=== PATIENT | female | born 1955 | race Caucasian/White ===

== ENCOUNTER → 2016-08-24 | Outpatient (CLI) | payer BC ==
[~2016-08-24] MED LIST: ALBU1AER9 INH; APRE1TAB3 PO; ATV/1 PO; ATV5 PO; AUG0.05O4 TOP; BROM0.07 OPR; CALC-388 PO; CALC-393 PO; CALC1CHW PO; CALC3OIN TOP; CALCTAB5 PO; CITA20TA4 PO; CITA20TA9 PO; CLB/200 PO; CLR10 PO; CRANPOW PO; FOLI1TAB7 PO; KRIL1000 PO; KRIL1CAP24 PO; METH2.5T PO; MOME50SP5; MOME6000; OMEP20TA PO; OXYC1TAB3 PO; PRAV40TA2 PO; PRED1SUS OPR; RXC5 PO; SALI0.6510; TIMO0.2534 OP; VNTHFA/IN INH; [UNRECOGNIZED DRUG - CODE] OPB
--- NOTE | 2016-08-24 15:09 | MAMMOGRAPHY REPORT ---
BILATERAL DIGITAL SCREENING MAMMOGRAM TOMOSYNTHESIS WITH CAD: 08/24/2016 TECHNIQUE: Breast tomosynthesis in addition to standard 2D mammography was performed. Current study was also evaluated with a Computer Aided Detection (CAD) system. COMPARISON: Comparison is made to exams dated: 08/22/2015 mammogram, 08/19/2014 mammogram, 08/18/2013 mammogram, 08/06/2012 mammogram, 07/26/2011 mammogram, and 07/25/2010 mammogram - [facility]. BREAST COMPOSITION: There are scattered areas of fibroglandular density in both breasts. FINDINGS: No suspicious masses, calcifications, or areas of architectural distortion are noted in e ither breast. There has been no significant interval change compared to prior exams. There are stab le postsurgical changes in the right lower inner quadrant, left upper outer quadrant anteriorly, and left axilla. Bilateral benign-appearing calcifications, predominantly dystrophic calcifications, a re not significantly changed. IMPRESSION: ACR BI-RADS CATEGORY 2: BENIGN There is no mammographic evidence of malignancy. A 1 year screening mammogram is recommended. The p atient will receive written notification of the results. Approximately 10% of breast cancers are not detected with mammography. A negative mammographic repor t should not delay biopsy if a clinically suggestive mass is present. Jacy Rivas M.D. /:08/24/2016 14:07:28 Merchandise Associate: Jennifer DARLING)([place]), [facility] letter sent: Normal 1/2 BI-RADS Code: ACR BI-RADS Category 2: Benign
== END | disposition home or self-care (01) ==
LOC: C.MAMM 10:07
PROVIDERS: ATTEND Obstetrics & Gynecology
DX: Z12.31 Encounter for screening mammogram for malignant neoplasm of breast (principal)

== ENCOUNTER 2016-10-26 13:17 | Emergency (ER) | payer BC ==
[~2016-10-26] VITALS: Ht 165.1 cm; Wt 76.1 kg
[~2016-10-26 13:17] MED LIST changes: -APRE1TAB3 PO; -ATV/1 PO; -BROM0.07 OPR; -CALC-388 PO; -CALC-393 PO; -CITA20TA9 PO; -CLB/200 PO; -CRANPOW PO; -KRIL1CAP24 PO; -METH2.5T PO; -MOME6000; -PRED1SUS OPR; -VNTHFA/IN INH; -[UNRECOGNIZED DRUG - CODE] OPB
[2016-10-26 13:21] VITALS: TEMP 36.7; Ht 165.1 cm; Wt 76.1 kg
[2016-10-26] MEDS ORDERED: LORAZEPAM 1 MG TAB SL STA (13:46)
[2016-10-26] MEDS ORDERED: SODIUM CHLORIDE 0.9% 1000ML 500 ML IV STA (13:46)
--- NOTE | 2016-10-26 13:55 | EMERGENCY ROOM VISIT NOTE ---
History Report prepared by Cornelius: Hazel Card Under the Supervision of: Dr. Kendall Reyes M.D. First contact with patient: 13:41 Chief Complaint: CARDIAC ASSESSMENT Stated Complaint: HEART PALPATATION,NAUSEA,SWEATS,FATIGUE History of Present Illness The patient is a 61 year old female who presents to the Emergency Room with complaints of persistent anxiety that began prior to arrival. The patient states that she has a history of depression, but notes that it is well controlled under medication. She states that recently she has been feeling increasingly stressed and anxious. The patient notes that she hasn't had any full panic attack, but has noticed starting to hyperventilate some. The patient states that she put her grandchildren on the bus today and then around 1030 she felt nauseous and diaphoretic. She states that she noticed tachycardia , palpitations, and shortness of breath. The patient denies any personal history of heart disease, but notes that her father had his first RI at the age of 41. The patient denies her symptoms worsening with exertion. Source of History: patient Onset: prior to arrival Position: other (global) Quality: other (anxiety) Timing: other (persistent) Associated Symptoms: + SOB, + diaphoresis, + nausea Note: Associated Symptoms: palpitations, tachycardia Review of Systems See HPI for pertinent positives & negatives. A total of 10 systems reviewed and were otherwise negative. Past Medical & Surgical Medical Problems: (1) Allergic rhinitis (2) Breast cancer (3) Cervical disc disorder with radiculopathy (4) Cervical herniated disc (5) DJD (degenerative joint disease), cervical (6) Dyslipidemia (7) Fibromyalgia (8) GERD (gastroesophageal reflux disease) (9) h/o BCC (10) H/O bronchitis (11) h/o dysphagia (12) H/o palpitations (13) h/o peripheral vertigo (14) History of TMJ disorder (15) Hypertension (16) Left shoulder pain (17) Psoriatic arthritis (18) Sensorineural hearing loss (SNHL), bilateral Surgical Problems: (1) H/O colonoscopy (2) H/o EGD (3) S/p drainage of ovarian cyst (4) S/p drainage of salivary gland abscess (5) S/p left knee meniscus surgery Family History Diabetes mellitus FATHER FH: CAD (coronary artery disease) FATHER (RI in 40s) UNCLE ( of RI in 30s) UNCLE ( of RI in 40's) FH: glaucoma MOTHER Stroke PATERNAL GRANDMOTHER Social History Smoking Status: Never Smoker Alcohol Use: occasionally Drug Use: none Marital Status: Occupation Status: disabled Current/Historical Medications Scheduled Albuterol Hfa (Ventolin Hfa), 2-4 PUFFS INH Q6H Apremilast (Otezla), 3 MG PO BID Betamethasone Dip Aug 0.05% (Diprolene 0.05%), 1 APPLN TOP BID Calcium Carbonate (Calcium), 600 MG PO BID Celecoxib (CeleBREX), 200 MG PO DAILY Citalopram Hydrobromide (Citalopram Hydrobromide), 30 MG PO QAM Folic Acid (Folvite), 1 MG PO QAM Loratadine (Claritin), 10 MG PO QAM Methotrexate (Methotrexate), 5 MG PO FRIDAYS Omeprazole (Omeprazole), 20 MG PO QAM Pravastatin Sodium (Pravastatin Sodium), 40 MG PO HS Scheduled PRN Calcitriol (Topical) (Vectical), 1 APPLN TOP BID PRN for PRN Calcium Carbonate (Antacid) (Tums Smoothies), 4-6 TABS PO DAILY PRN for PRN Lorazepam (Lorazepam), 0.5 MG PO Q8H PRN for anxiety and/or sedation Lorazepam (Ativan), 1 MG PO Q6H PRN for Anxiety/Agitation Saline ([place] Nasal [place]), 2 SPRAYS NA DIRECTED PRN for DRYNESS/CONGESTION Miscellaneous Medications Mometasone Furoate (Nasal) (Mometasone Furoate) Timolol Maleate (Timolol Maleate Ophthalmi) Allergies Coded Allergies: Doxycycline (Verified Allergy, Unknown, HIVES, 10/26/16) Sulfamethoxazole w/Trimethoprim (Verified Allergy, Unknown, insomnia, 10/26) Clarithromycin (Verified Adverse Reaction, Intermediate, INSOMNIA TACHYCARDIA, 10/26/16) Codeine (Verified Adverse Reaction, Mild, Severe drowsiness , 10/26/16) Tetracyclines (Verified Adverse Reaction, Mild, NAUSEA, 10/26/16) Physical Exam Vital Signs Date Time Temp Pulse Resp B/P Pulse Ox O2 Delivery O2 Flow Rate FiO2 10/26/16 15:12 72 16 122/71 95 Room Air 10/26/16 14:34 78 18 118/72 93 Room Air 10/26/16 13:42 91 10/26/16 13:21 36.7 88 18 135/86 96 Room Air Physical Exam GENERAL: Patient is in no acute distress. HEENT: No acute trauma, normocephalic atraumatic, mucous membranes moist, no nasal congestion, no scleral icterus. NECK: No stridor, no adenopathy, no meningismus, trachea is midline. CHEST: Tender left anterior chest wall. LUNGS: Clear to auscultation bilaterally, no wheeze, no rhonchi, breath sounds equal. HEART: Subtle systolic murmur, regular rate and rhythm ABDOMEN: Soft, nontender, bowel sounds positive, no hernias, no peritonitis. EXTREMITIES: No cyanosis or edema, full range of motion of all the joints without pain or difficulty, no signs for acute trauma. NEUROLOGIC: Oriented x 3, no acute motor or sensory deficits, no focal weakness. SKIN: No rash, no jaundice, no diaphoresis. PSYCH: Cooperative, not suicidal, slightly anxious. Medical Decision & Procedures ER Provider Diagnostic Interpretation: X-ray results as stated below per interpretation by me and the radiologist: CHEST ONE VIEW PORTABLE CLINICAL HISTORY: Atypical chest pain. Respiratory distress. COMPARISON STUDY: 08/28/2015 FINDINGS: The heart is at the upper limits of normal in size. There is no focal pulmonary consolidation. There is no failure. There are no pleural effusions.[ IMPRESSION: No active disease in the chest. Electronically signed by: Nabeel Browning M.D. 10/26/2016 2:06 PM Dictated Date/Time: 10/26/2016 2:06 PM Laboratory Results 10/26/16 14:05 Red Blood Count 4.17, Mean Corpuscular Volume 98.6, Mean Corpuscular Hemoglobin 33.8, Mean Corpuscular Hemoglobin Concent 34.3, Mean Platelet Volume 9.6, Neutrophils (%) (Auto) 63.5, Lymphocytes (%) (Auto) 24.2, Monocytes (%) (Auto) 9.6, Eosinophils (%) (Auto) 2.1, Basophils (%) (Auto) 0.4, Neutrophils # (Auto) 3.05, Lymphocytes # (Auto) 1.16, Monocytes # (Auto) 0.46, Eosinophils # (Auto) 0.10, Basophils # (Auto) 0.02 10/26/16 14:05 Test 10/26/16 14:05 White Blood Count 4.80 K/uL (4.8-10.8) Red Blood Count 4.17 M/uL (4.2-5.4) Hemoglobin 14.1 g/dL (12.0-16.0) Hematocrit 41.1 % (37-47) Mean Corpuscular Volume 98.6 fL (80-100) Mean Corpuscular Hemoglobin 33.8 pg (25-34) Mean Corpuscular Hemoglobin Concent 34.3 g/dl (32-36) Platelet Count 167 K/uL (130-400) Mean Platelet Volume 9.6 fL (7.4-10.4) Neutrophils (%) (Auto) 63.5 % Lymphocytes (%) (Auto) 24.2 % Monocytes (%) (Auto) 9.6 % Eosinophils (%) (Auto) 2.1 % Basophils (%) (Auto) 0.4 % Neutrophils # (Auto) 3.05 K/uL (1.4-6.5) Lymphocytes # (Auto) 1.16 K/uL (1.2-3.4) Monocytes # (Auto) 0.46 K/uL (0.11-0.59) Eosinophils # (Auto) 0.10 K/uL (0-0.5) Basophils # (Auto) 0.02 K/uL (0-0.2) RDW Standard Deviation 45.2 fL (36.4-46.3) RDW Coefficient of Variation 12.7 % (11.5-14.5) Immature Granulocyte % (Auto) 0.2 % Immature Granulocyte # (Auto) 0.01 K/uL (0.00-0.02) Anion Gap 5.0 mmol/L (3-11) Est Creatinine Clear Calc Drug Dose 71.7 ml/min Estimated GFR () 87.6 Estimated GFR (Non- 75.6 BUN/Creatinine Ratio 23.1 (10-20) Calcium Level 8.9 mg/dl (8.5-10.1) Magnesium Level 2.3 mg/dl (1.8-2.4) Troponin I < 0.015 ng/ml (0-0.045) Laboratory results reviewed by me. Medications Administered Medications (Trade) Dose Ordered Sig/Moni Route Start Time Stop Time Status Last Admin Dose Admin Sodium Chloride (Nss 1000ml) 500 ml @ 999 mls/hr Q31M STAT IV 10/26/16 13:46 10/26/16 14:16 DC 10/26/16 14:33 999 MLS/HR Lorazepam (Ativan Tab) 1 mg NOW STAT SL 10/26/16 13:46 10/26/16 13:50 DC 10/26/16 14:33 1 MG ECG Indication: diaphoresis, nausea, palpitations, SOB/dyspnea, tachycardia Rate (beats per minute): 84 Rhythm: normal sinus Findings: no acute ischemic change, no ectopy ED Course 1341: The patient was evaluated in room A2. A complete history and physical exam was performed. 1346: Ordered Ativan Tab 1 mg SL, Sodium Chloride 500 ml @ 999 mls/hr IV. 1507: I reevaluated the patient and she is resting comfortably. I discussed the exam findings with her and I discussed the treatment plan. She verbalized complete understanding and agreement. She is ready to go home. Medical Decision The patient is a 61 year old female who presents to the ED with complaints of anxiety. Differential diagnoses considered include electrolyte imbalance, hypothyroidism, dehydration, anemia, cardiac ischemia, dysrhythmia, anxiety. There is no leukocytosis or concerning anemia. No significant electrolyte abnormality or kidney failure. The patient appears to be in a euthyroid state. EKG shows a normal sinus rhythm, no acute ischemia. Cardiac enzyme testing times one is not consistent with acute cardiac injury. Chest x-ray does not show mediastinal widening, pneumonia or pneumothorax. The patient received IV saline. She was given Ativan sublingual. She feels markedly improved. I think the patient's issue is primarily anxiety. I don't find evidence to suggest acute cardiac ischemia or to suggest dysrhythmia. The patient is being discharged home with outpatient follow-up. A small prescription of Ativan will be provided. Of note, the left-sided chest pain is reproducible and very likely musculoskeletal. [place] Drug Monitoring Program Search Results: patient reviewed within database, no issues identified Impression Primary Impression: Palpitations Additional Impression: Left sided chest pain Scribe Attestation The scribe's documentation has been prepared under my direction and personally reviewed by me in its entirety. I confirm that the note above accurately reflects all work, treatment, procedures, and medical decision making performed by me. Departure Information Dispostion Home / Self-Care Prescriptions Lorazepam (ATIVAN) 1 Mg Tab 1 MG PO Q6H Y for Anxiety/Agitation, #10 TAB Prov: Kendall Reyes M.D. 10/26/16 Referrals Ghassan Ferrara M.D. (PCP) Forms IMPORTANT VISIT INFORMATION Patient Instructions [facility] Additional Instructions ativan 1 tab as needed for severe anxiety see aida georges this week for a recheck return if worsening or have worsening symptoms lab testing today was all ok Problem Qualifiers
--- NOTE | 2016-10-26 14:08 | DIAGNOSTIC IMAGING REPORT ---
CHEST ONE VIEW PORTABLE CLINICAL HISTORY: Atypical chest pain. Respiratory distress. COMPARISON STUDY: 08/28/2015 FINDINGS: The heart is at the upper limits of normal in size. There is no focal pulmonary consolidation. There is no failure. There are no pleural effusions.[ IMPRESSION: No active disease in the chest. Electronically signed by: Nabeel Browning M.D. 10/26/2016 2:06 PM Dictated Date/Time: 10/26/2016 2:06 PM
[2016-10-26 14:23] LABS: BASO % 0.4 %; BASO ABS # 0.02 K/uL (0-0.2); COMPLETE YES; EOS % 2.1 %; HEMATOCRIT 41.1 % (37-47); IG% 0.2 %; LYMPH % 24.2 %; LYMPH ABS # 1.16 K/uL (1.2-3.4); MEAN CELL VOLUME 98.6 fL (80-100); MEAN CORPUSCULAR HEMOGLOBIN 33.8 pg (25-34); MEAN CORPUSCULAR HGB CONC 34.3 g/dl (32-36); MEAN PLATELET VOLUME 9.6 fL (7.4-10.4); MONO % 9.6 %; NEUT % 63.5 %; PLATELET COUNT 167 K/uL (130-400); RED BLOOD COUNT 4.17 M/uL (4.2-5.4)
[2016-10-26] MEDS ORDERED: MOME6000 (14:26)
[2016-10-26] MEDS ORDERED: CALC-393 PO (14:26)
[2016-10-26] MEDS ORDERED: APRE1TAB3 PO (14:26)
[2016-10-26] MEDS ORDERED: [UNRECOGNIZED DRUG - CODE] OPB (14:26)
[2016-10-26] MEDS ORDERED: METH2.5T PO (14:26)
[2016-10-26] MEDS ORDERED: CLB/200 PO (14:26)
[2016-10-26] MEDS ORDERED: VNTHFA/IN INH (14:26)
[2016-10-26 14:40] LABS: BLOOD UREA NITROGEN 19 mg/dl (7-18); BUN/CREATININE RATIO 23.1 (10-20); CALCIUM 8.9 mg/dl (8.5-10.1); CARBON DIOXIDE 30 mmol/L (21-32); CHLORIDE 113 mmol/L (98-107); CREATININE 0.83 mg/dl (0.60-1.20); GLUCOSE 91 mg/dl (70-99); MAGNESIUM 2.3 mg/dl (1.8-2.4); POTASSIUM 4.1 mmol/L (3.5-5.1); SODIUM 148 mmol/L (136-145)
[2016-10-26 15:12] VITALS: BP 122/71; PULSE 72; O2SAT 95
[2016-10-26] MEDS ORDERED: ATV/1 PO (15:14)
[2017-01-22] MEDS ORDERED: CALC-388 PO (11:32)
[2017-01-22] MEDS ORDERED: APRE1TAB3 PO (11:32)
[2017-01-22] MEDS ORDERED: CRANPOW PO (11:32)
[2017-01-22] MEDS ORDERED: KRIL1CAP24 PO (11:32)
[2017-01-22] MEDS ORDERED: CITA20TA9 PO (11:32)
[2017-02-25] MEDS ORDERED: BROM0.07 OPR (13:17)
[2017-02-25] MEDS ORDERED: PRED1SUS OPR (13:17)
== END 2016-10-26 15:23 | disposition home or self-care (01) ==
LOC: C.EDB 13:19 → C.EDA 15:23
DX: R00.2 Palpitations (principal); R07.9 Chest pain, unspecified; I10 Essential (primary) hypertension; K21.9 Gastro-esophageal reflux disease without esophagitis; E78.5 Hyperlipidemia, unspecified; Z85.3 Personal history of malignant neoplasm of breast; Z98.890 Other specified postprocedural states; Z79.899 Other long term (current) drug therapy; Z88.2 Allergy status to sulfonamides; Z88.5 Allergy status to narcotic agent; Z88.8 Allergy status to other drugs, medicaments and biological substances; Z83.3 Family history of diabetes mellitus; Z82.49 Family history of ischemic heart disease and other diseases of the circulatory system; Z82.3 Family history of stroke

== ENCOUNTER → 2017-02-19 | Day surgery (SDC) | payer BC ==
[2017-01-22 11:33] VITALS: Ht 165.1 cm; Wt 75.5 kg
[~2017-02-19] VITALS: Ht 165.1 cm; Wt 75.5 kg
[~2017-02-19] MED LIST changes: +500ML BSS 0.3ML EPI 1:1000PF IRRIG ONE; +ACETAMINOPHEN 325 MG TAB PO PRN; -ALBU1AER9 INH; +AMVISC PLUS 0.8ML SYRINGE INT OCU ONE; +APRE1TAB3 PO; +ATROPINE SULFATE 0.1 MG/ML 5ML SYR IV PRN; -ATV5 PO; +BROM0.07 OPR; +BSS FLUSH ONE; +CALC-388 PO; -CALCTAB5 PO; -CITA20TA4 PO; +CITA20TA9 PO; +CLB/200 PO; +CRANPOW PO; +EpHEDrine SULFATE INJ 50 MG/ML AMP IV PRN; +EpINEphrine INJ 1MG/ML AMP 1 MG/ML AMP ONE; -KRIL1000 PO; +KRIL1CAP24 PO; +LACTATED RINGER'S 1000ML 500 ML IV SCH; +LIDOCAINE 3.5% OPH GEL PER APPLICATION CHARGE ONE; +LIDOCAINE HCL 1% MPF 2 ML VIAL ONE; +METH2.5T PO; +MIDAZOLAM HCL 1 MG/ML 2ML VIAL ONE; -MOME50SP5; +OCUCOAT 1 ML SOLN IO ONE; -OXYC1TAB3 PO; +POVIDONE-IODINE OP SOLN 30 ML BTL ONE; +PRED1SUS OPR; +PROPARACAINE 0.5% OP SOLN PER DROP CHARGE OPR SCH; -RXC5 PO; -TIMO0.2534 OP; +TOBRAMYCIN/DEXAMETHASONE OPH OINT PER APPLN CHARGE ONE; +VNTHFA/IN INH; +[UNRECOGNIZED DRUG - CODE] OPB
[2017-02-19] MEDS: PHENYLEPHRINE HCL 2.5% OP SOLN PER DROP CHARGE OPR SCH ×2 (06:33→06:38)
[2017-02-19] MEDS: TROPICAMIDE 1% OP SOLN PER DROP CHARGE OPR SCH ×2 (06:34→06:39)
[2017-02-19] MEDS: CYCLOPENTOLATE HCL 1% OP SOLN PER DROP CHARGE OPR SCH ×2 (06:35→06:40)
[2017-02-19] MEDS: KETOROLAC 0.5% OP SOLN PER DROP CHARGE OPR SCH ×2 (06:36→06:40)
[2017-02-19] MEDS: GATIFLOXACIN OP SOLN PER DROP CHARGE OPR SCH ×2 (06:37→06:47)
--- NOTE | 2017-02-19 07:00 | History & Physical Bridge - SC ---
H&P Re-Evaluation Bridge Note: I have examined the patient, reviewed the History & Physical and in the interval since the performance of the History & Physical I have noted the following changes of clinical significance: No changes noted
--- NOTE | 2017-02-19 07:19 | Discharge Instructions-SurgCtr ---
Discharge Instructions Date of Service Feb 19, 2017. Visit Reason for Visit: Right Cataract Discharge Discharge Diagnosis / Problem: cataract Discharge Goals Goal(s): Improve function Activity Recommendations Activity Limitations: per Instructions/Follow-up section Anesthesia . Post Anesthesia Instructions: If you have had General Anesthesia or IV Sedation: * Do not drive today. * Resume driving when surgeon permits. * Do not make important decisions or sign legal documents today. * Call surgeon for: 1. Temperature elevations greater than 101 degrees F. 2. Uncontrollable pain. 3. Excessive bleeding. 4. Persistent nausea and vomiting. 5. Medication intolerance (nausea, vomiting or rash). * For nausea and vomiting use only clear liquids such as: tea, soda, bouillon until nausea subsides, then gradually increase diet as tolerated. * If you have any concerns or questions, call your surgeon's office. If physician is unavailable and it is an emergency, call 911 or go to the nearest emergency room. . Instructions / Follow-Up Instructions / Follow-Up ACTIVITY RECOMMENDATIONS: * No strenuous lifting, jogging or running for 4 days * No swimming or yard work for 1 week. * Limited bending is permitted, such as putting on shoes. RETURN TO SCHOOL/WORK: No work until seen by physician in office. MEDICATIONS: Resume previous medications unless instructed otherwise by your surgeon. This includes eye drops for glaucoma. Zymaxid/Gatifloxacin (flowers cap) - one drop every 2 hours until bedtime Nevanac/Ilevro/Prolensa/Ketorolac (buchanan cap) - one drop every 4 hours until bedtime Prednisolone/Durezol (white/pink cap, SHAKE WELL) - one drop every 2 hours until bedtime Starting tomorrow - all 3 drops every 4 hours until seen in the office Optive drops - as needed for discomfort SPECIAL CARE INSTRUCTIONS: * Wear eyeshield when sleeping, for four nights. * You may wear your own glasses or sunglasses while awake. * You may read or watch TV * You may shower and wash your face, but be gentle around the eye and pat dry. * Blurry vision and mild irritation are normal. * Call office if pain is more severe or vision becomes dark at . FOLLOW UP VISIT: Follow-up with Dr Riggins tomorrow. Diet Recommendations Home Diet: resume previous diet Procedures Procedures Performed: Right Cataract Phacoemulsification With Intraocular Lens Implant Pending Studies Studies pending at discharge: no Medical Emergencies . Who to Call and When: Medical Emergencies: If at any time you feel your situation is an emergency, please call 911 immediately. . Non-Emergent Contact Non-Emergency issues call your: Lumber Bearer . . "Provider Documentation" section prepared by Holden Riggins. .
--- NOTE | 2017-02-19 07:20 | [facility] Operative Report ---
Operative Report Date of Service Feb 19, 2017. Operative Report 1. PREOPERATIVE DIAGNOSIS: Cataract of the right eye. 2. POSTOPERATIVE DIAGNOSIS: Same. 3. PROCEDURE: Phacoemulsification with intraocular lens implantation of the right eye. SURGEON: Dr. Holden Riggins. ANESTHESIA: Topical Lidocaine gel, 1% Non- Preserved intracameral Lidocaine, and monitored intravenous sedation. INDICATIONS FOR THE PROCEDURE: The patient is a 61 - year-old female with a history of cataract of the right eye causing significant visual impairment. The details of the proposed procedure were explained to the patient who asked appropriate questions and following discussion of all risks, benefits and alternatives agreed to have the procedure done. 4. OPERATION AND FINDINGS: DESCRIPTION OF PROCEDURE: After informed consent was obtained, the patient was brought to the Operating Room at the [facility]. The patient was placed in a supine position and then the right eye was prepped and draped in the usual sterile fashion for intraocular surgery. A drop of topical Lidocaine gel was placed in the operative eye. A wire lid speculum was then placed in the fornices. A corneal paracentesis was then created temporally. The Non-Preserved Lidocaine was then instilled into the anterior chamber. The anterior chamber was then pressurized with viscoelastic. A 2.0 mm clear corneal incision was then created temporally. A cystotome was inserted into the anterior chamber and used to create a tear in the anterior lens capsule. This capsular tear was then used to create a small flap and the flap was dragged in a counterclockwise direction in order to create a continuous curvilinear capsulorrhexis. Hydrodissection was accomplished with balanced salt solution. Phacoemulsification of the lens nucleus was then performed in a standard [id number] technique. The phaco time was 19 seconds with an average power of 11 %. The remaining cortical material was removed using irrigation aspiration. The capsular bag was then filled with viscoelastic. A [employer]ch [employer] Lomb MI60L +24.5 diopters lens was then loaded into the injector and injected into the capsular bag. The remaining viscoelastic was removed with the irrigation aspiration handpiece. The wound was hydrated and then checked and found to be watertight. The intraocular pressure was checked and found to be adequate. The wire lid speculum was removed and the patient's face was cleaned and dried. TobraDex ointment was placed in the inferior fornix. The patient was discharged to the Recovery Room having tolerated the procedure well. There were no complications. The patient will be seen tomorrow in the office for follow-up. I attest to the content of the Intraoperative Record and any orders documented therein. Any exceptions are noted below.
[2017-02-19 07:26] VITALS: TEMP 36
[2017-02-19 07:41] VITALS: BP 128/81; PULSE 63; O2SAT 97
--- NOTE | 2017-02-19 07:47 | Anesthesia Progress Nt - [facility] ---
Anesthesia Post Op Note Date & Time Feb 19, 2017 at 07:47 Vital Signs Pain Intensity: 0 Vital Signs Past 12 Hours Date Time Temp Pulse Resp B/P (MAP) Pulse Ox O2 Delivery O2 Flow Rate FiO2 02/19/17 07:41 63 128/81 (97) 97 Room Air 02/19/17 07:26 36.0 64 14 138/83 (101) 98 Room Air 02/19/17 06:23 36.3 62 16 132/66 (88) 96 Notes Mental Status: alert / awake / arousable, participated in evaluation Pt Amnestic to Procedure: Yes Nausea / Vomiting: adequately controlled Pain: adequately controlled Airway Patency, RR, SpO2: stable & adequate BP & HR: stable & adequate Hydration State: stable & adequate Anesthetic Complications: no major complications apparent
== END | disposition home or self-care (01) ==
LOC: X.SURG 06:15
PROVIDERS: ATTEND Ophthalmology
DX: H26.9 Unspecified cataract (principal); E78.5 Hyperlipidemia, unspecified; F43.21 Adjustment disorder with depressed mood; L40.50 Arthropathic psoriasis, unspecified; M79.7 Fibromyalgia; Z87.891 Personal history of nicotine dependence; Z85.3 Personal history of malignant neoplasm of breast; Z79.899 Other long term (current) drug therapy

== ENCOUNTER → 2017-03-12 | Day surgery (SDC) | payer BC ==
[2017-02-25 13:22] VITALS: Ht 165.1 cm; Wt 75.5 kg
[~2017-03-12] VITALS: Ht 165.1 cm; Wt 75.5 kg
[~2017-03-12] MED LIST changes: +DEXAMETHASONE SOD INJ 4 MG/ML VIAL IV PRN; +FENTANYL CITRATE INJ 50 MCG/1 ML 2 ML VIAL IV PRN; +FENTANYL CITRATE INJ 50 MCG/1 ML 2 ML VIAL ONE; +KETOROLAC TROMETHAMINE 30 MG/ML VIAL IV. PRN; +LABETALOL HCL IV 5 MG/ML 20ML IV PRN; +METOCLOPRAMIDE HCL INJ 5 MG/ML 2 ML VIAL IV PRN; +MoRPHine SULFATE 10 MG/ML CARP/VIAL IV PRN; +ONDANSETRON INJ 2 MG/ML 2 ML VIAL IV PRN; +PHENYLEPHRINE 100MCG/ML 5ML SYR IV PRN; +PROPARACAINE 0.5% OP SOLN PER DROP CHARGE OPL SCH; -PROPARACAINE 0.5% OP SOLN PER DROP CHARGE OPR SCH
[2017-03-12] MEDS: PHENYLEPHRINE HCL 2.5% OP SOLN PER DROP CHARGE OPL SCH ×2 (07:11→07:16)
[2017-03-12] MEDS: TROPICAMIDE 1% OP SOLN PER DROP CHARGE OPL SCH ×2 (07:12→07:17)
[2017-03-12] MEDS: CYCLOPENTOLATE HCL 1% OP SOLN PER DROP CHARGE OPL SCH ×2 (07:13→07:18)
[2017-03-12] MEDS: KETOROLAC 0.5% OP SOLN PER DROP CHARGE OPL SCH ×2 (07:14→07:19)
[2017-03-12] MEDS: GATIFLOXACIN OP SOLN PER DROP CHARGE OPL SCH ×2 (07:15→07:26)
--- NOTE | 2017-03-12 08:18 | Discharge Instructions-SurgCtr ---
Discharge Instructions Date of Service Mar 12, 2017. Visit Reason for Visit: Cataract Left Eye Discharge Discharge Diagnosis / Problem: cataract Discharge Goals Goal(s): Improve function Activity Recommendations Activity Limitations: per Instructions/Follow-up section Anesthesia . Post Anesthesia Instructions: If you have had General Anesthesia or IV Sedation: * Do not drive today. * Resume driving when surgeon permits. * Do not make important decisions or sign legal documents today. * Call surgeon for: 1. Temperature elevations greater than 101 degrees F. 2. Uncontrollable pain. 3. Excessive bleeding. 4. Persistent nausea and vomiting. 5. Medication intolerance (nausea, vomiting or rash). * For nausea and vomiting use only clear liquids such as: tea, soda, bouillon until nausea subsides, then gradually increase diet as tolerated. * If you have any concerns or questions, call your surgeon's office. If physician is unavailable and it is an emergency, call 911 or go to the nearest emergency room. . Instructions / Follow-Up Instructions / Follow-Up ACTIVITY RECOMMENDATIONS: * No strenuous lifting, jogging or running for 4 days * No swimming or yard work for 1 week. * Limited bending is permitted, such as putting on shoes. RETURN TO SCHOOL/WORK: No work until seen by physician in office. MEDICATIONS: Resume previous medications unless instructed otherwise by your surgeon. This includes eye drops for glaucoma. Zymaxid/Gatifloxacin (flowers cap) - one drop every 2 hours until bedtime Nevanac/Ilevro/Prolensa/Ketorolac (buchanan cap) - one drop every 4 hours until bedtime Prednisolone/Durezol (white/pink cap, SHAKE WELL) - one drop every 2 hours until bedtime Starting tomorrow - all 3 drops every 4 hours until seen in the office Optive drops - as needed for discomfort SPECIAL CARE INSTRUCTIONS: * Wear eyeshield when sleeping, for four nights. * You may wear your own glasses or sunglasses while awake. * You may read or watch TV * You may shower and wash your face, but be gentle around the eye and pat dry. * Blurry vision and mild irritation are normal. * Call office if pain is more severe or vision becomes dark at . FOLLOW UP VISIT: Follow-up with Dr Riggins tomorrow. Diet Recommendations Home Diet: resume previous diet Procedures Procedures Performed: Left Cataract Phacoemulsification With Intraocular Lens Implant Pending Studies Studies pending at discharge: no Medical Emergencies . Who to Call and When: Medical Emergencies: If at any time you feel your situation is an emergency, please call 911 immediately. . Non-Emergent Contact Non-Emergency issues call your: Transport Tank Technician . . "Provider Documentation" section prepared by Holden Riggins. .
--- NOTE | 2017-03-12 08:19 | [facility] Operative Report ---
Operative Report Date of Service Mar 12, 2017. Operative Report 1. PREOPERATIVE DIAGNOSIS: Cataract of the left eye. 2. POSTOPERATIVE DIAGNOSIS: Same. 3. PROCEDURE: Phacoemulsification with intraocular lens implantation of the left eye. SURGEON: Dr. Holden Riggins. ANESTHESIA: Topical Lidocaine gel, 1% Non- Preserved intracameral Lidocaine, and monitored intravenous sedation. INDICATIONS FOR THE PROCEDURE: The patient is a 61 - year-old female with a history of cataract of the left eye causing significant visual impairment. The details of the proposed procedure were explained to the patient who asked appropriate questions and following discussion of all risks, benefits and alternatives agreed to have the procedure done. 4. OPERATION AND FINDINGS: DESCRIPTION OF PROCEDURE: After informed consent was obtained, the patient was brought to the Operating Room at the [facility]. The patient was placed in a supine position and then the left eye was prepped and draped in the usual sterile fashion for intraocular surgery. A drop of topical Lidocaine gel was placed in the operative eye. A wire lid speculum was then placed in the fornices. A corneal paracentesis was then created temporally. The Non-Preserved Lidocaine was then instilled into the anterior chamber. The anterior chamber was then pressurized with viscoelastic. A 2.0 mm clear corneal incision was then created temporally. A cystotome was inserted into the anterior chamber and used to create a tear in the anterior lens capsule. This capsular tear was then used to create a small flap and the flap was dragged in a counterclockwise direction in order to create a continuous curvilinear capsulorrhexis. Hydrodissection was accomplished with balanced salt solution. Phacoemulsification of the lens nucleus was then performed in a standard [id number] technique. The phaco time was 23 seconds with an average power of 8 %. The remaining cortical material was removed using irrigation aspiration. The capsular bag was then filled with viscoelastic. A [employer] MI60L +24.0 diopters lens was then loaded into the injector and injected into the capsular bag. The remaining viscoelastic was removed with the irrigation aspiration handpiece. The wound was hydrated and then checked and found to be watertight. The intraocular pressure was checked and found to be adequate. The wire lid speculum was removed and the patient's face was cleaned and dried. TobraDex ointment was placed in the inferior fornix. The patient was discharged to the Recovery Room having tolerated the procedure well. There were no complications. The patient will be seen tomorrow in the office for follow-up. I attest to the content of the Intraoperative Record and any orders documented therein. Any exceptions are noted below.
--- NOTE | 2017-03-12 08:39 | Anesthesia Progress Nt - [facility] ---
Anesthesia Post Op Note Date & Time Mar 12, 2017 at 08:39 Vital Signs Pain Intensity: 0 Vital Signs Past 12 Hours Date Time Temp Pulse Resp B/P (MAP) Pulse Ox O2 Delivery O2 Flow Rate FiO2 03/12/17 08:20 36.3 68 18 120/76 (91) 96 Room Air 03/12/17 07:06 36.9 65 22 112/73 (86) 94 Room Air Notes Mental Status: alert / awake / arousable, participated in evaluation Pt Amnestic to Procedure: Yes Nausea / Vomiting: adequately controlled Pain: adequately controlled Airway Patency, RR, SpO2: stable & adequate BP & HR: stable & adequate Hydration State: stable & adequate Anesthetic Complications: no major complications apparent
[2017-03-12 08:49] VITALS: BP 119/77; PULSE 59; O2SAT 95
== END | disposition home or self-care (01) ==
LOC: X.SURG 06:54
PROVIDERS: ATTEND Ophthalmology
DX: H26.9 Unspecified cataract (principal); K21.9 Gastro-esophageal reflux disease without esophagitis; M79.7 Fibromyalgia; L40.9 Psoriasis, unspecified; E78.5 Hyperlipidemia, unspecified; Z85.3 Personal history of malignant neoplasm of breast

== ENCOUNTER 2017-06-28 19:32 | Emergency (ER) | payer BC ==
[~2017-06-28] VITALS: Ht 165.1 cm; Wt 74.7 kg
[~2017-06-28 19:32] MED LIST changes: -500ML BSS 0.3ML EPI 1:1000PF IRRIG ONE; -ACETAMINOPHEN 325 MG TAB PO PRN; -AMVISC PLUS 0.8ML SYRINGE INT OCU ONE; -ATROPINE SULFATE 0.1 MG/ML 5ML SYR IV PRN; -BSS FLUSH ONE; -DEXAMETHASONE SOD INJ 4 MG/ML VIAL IV PRN; -EpHEDrine SULFATE INJ 50 MG/ML AMP IV PRN; -EpINEphrine INJ 1MG/ML AMP 1 MG/ML AMP ONE; -FENTANYL CITRATE INJ 50 MCG/1 ML 2 ML VIAL IV PRN; -FENTANYL CITRATE INJ 50 MCG/1 ML 2 ML VIAL ONE; -FOLI1TAB7 PO; +FOLI1TAB8 PO; -KETOROLAC TROMETHAMINE 30 MG/ML VIAL IV. PRN; -LABETALOL HCL IV 5 MG/ML 20ML IV PRN; -LACTATED RINGER'S 1000ML 500 ML IV SCH; -LIDOCAINE 3.5% OPH GEL PER APPLICATION CHARGE ONE; -LIDOCAINE HCL 1% MPF 2 ML VIAL ONE; -METOCLOPRAMIDE HCL INJ 5 MG/ML 2 ML VIAL IV PRN; -MIDAZOLAM HCL 1 MG/ML 2ML VIAL ONE; -MoRPHine SULFATE 10 MG/ML CARP/VIAL IV PRN; -OCUCOAT 1 ML SOLN IO ONE; -ONDANSETRON INJ 2 MG/ML 2 ML VIAL IV PRN; -PHENYLEPHRINE 100MCG/ML 5ML SYR IV PRN; -POVIDONE-IODINE OP SOLN 30 ML BTL ONE; -PROPARACAINE 0.5% OP SOLN PER DROP CHARGE OPL SCH; -TOBRAMYCIN/DEXAMETHASONE OPH OINT PER APPLN CHARGE ONE
[2017-06-28 19:39] VITALS: TEMP 36.7; Ht 165.1 cm; Wt 74.7 kg
[2017-06-28] MEDS ORDERED: ONDANSETRON INJ 2 MG/ML 2 ML VIAL IV STA (19:54)
[2017-06-28] MEDS ORDERED: HYDROmorphone INJ 0.5 MG/0.5 ML SYR IV STA ×2 (19:54→20:46)
--- NOTE | 2017-06-28 20:02 | EMERGENCY ROOM VISIT NOTE ---
History Report prepared by Cornelius: Aaron Mitchell Under the Supervision of: Dr. Crow Cardona M.D. First contact with patient: 19:44 Chief Complaint: HEADACHE Stated Complaint: DOSHI, NECK PAIN, SHOULDER PAIN R, DIZZY, NAUSEA History of Present Illness The patient is a 62 year old female who presents to the Emergency Room with complaints of an intermittent headache beginning two weeks ago. The patient states that her headache is located all over her head. She notes that she is also experiencing neck pain, ear pain, and right shoulder pain. She reports that her left shoulder was hurting earlier. She also complains of dizziness when she stands up and nausea. She denies any numbness, chest pain, vision problems, difficulty speaking, fever, cough, runny nose, and trauma. The patient states that she does not usually get headaches. She notes that she took Excedrin with no relief of her symptoms. She reports that she is not on any blood thinners. Source of History: patient, family Onset: two weeks ago Position: head Timing: intermittent Associated Symptoms: + neck pain, + nausea, No fevers, No cough, No chest pain, No numbness Note: She also complains of ear pain, right shoulder pain, and dizziness. She denies any vision problems, difficulty speaking, runny nose, and trauma. Review of Systems See HPI for pertinent positives & negatives. A total of 10 systems reviewed and were otherwise negative. Past Medical & Surgical Medical Problems: (1) Allergic rhinitis (2) Breast cancer (3) Cervical disc disorder with radiculopathy (4) Cervical herniated disc (5) DJD (degenerative joint disease), cervical (6) Dyslipidemia (7) Fibromyalgia (8) GERD (gastroesophageal reflux disease) (9) h/o BCC (10) H/O bronchitis (11) h/o dysphagia (12) H/o palpitations (13) h/o peripheral vertigo (14) History of TMJ disorder (15) Hypertension (16) Left shoulder pain (17) Psoriatic arthritis (18) Sensorineural hearing loss (SNHL), bilateral Surgical Problems: (1) H/O colonoscopy (2) H/o EGD (3) S/p drainage of ovarian cyst (4) S/p drainage of salivary gland abscess (5) S/p left knee meniscus surgery Old medical records were reviewed. Nurse's notes were reviewed and I agree with. Family History Diabetes mellitus FATHER FH: CAD (coronary artery disease) FATHER ([place] in 40s) UNCLE ( of [place] in 30s) UNCLE ( of [place] in 40's) FH: glaucoma MOTHER Stroke PATERNAL GRANDMOTHER Social History Smoking Status: Never Smoker Alcohol Use: occasionally Drug Use: none Marital Status: Occupation Status: disabled Current/Historical Medications Scheduled Apremilast (Otezla), 60 MG PO DAILY Azelastine HCl (Azelastine Hydrochloride), 1 SPRAY YAW DAILY Calcium Carbonate-Vitamin D (Calcium 500 + D), 1 TAB PO DAILY Celecoxib (CeleBREX), 200 MG PO DAILY Citalopram (Citalopram Hydrobromide), 30 MG PO DAILY Cranberry-Vitamin C-Vitamin E (Cranberry Plus Vitamin C), 4 CAP PO DAILY Folic Acid (Folvite), 1 MG PO DAILY Krill Oil (Krill Oil), 500 MG PO DAILY Methotrexate (Methotrexate), 10 MG PO WK Omeprazole (Prilosec), 20 MG PO DAILY Pravastatin Sodium (Pravachol), 40 MG PO DAILY Timolol Maleate (Timolol 0.5% Oph Soln 15 Ml), 1 DROP OPB QAM Scheduled PRN Saline ([place] Nasal Mist Allergy &), 1 SPRAY YAW DAILY PRN for ALLERGIES Allergies Coded Allergies: Doxycycline (Verified Allergy, Unknown, HIVES, 06/28/17) Sulfamethoxazole w/Trimethoprim (Verified Allergy, Unknown, insomnia, ) Clarithromycin (Verified Adverse Reaction, Intermediate, INSOMNIA TACHYCARDIA, 06/28/17) Codeine (Verified Adverse Reaction, Mild, Severe drowsiness , 06/28/17) Tetracyclines (Verified Adverse Reaction, Mild, NAUSEA, 06/28/17) Physical Exam Vital Signs Date Time Temp Pulse Resp B/P (MAP) Pulse Ox O2 Delivery O2 Flow Rate FiO2 06/28/17 22:26 67 16 131/65 97 06/28/17 21:30 62 130/63 93 Room Air 06/28/17 20:57 60 19 119/69 96 Room Air 06/28/17 20:12 67 14 112/75 98 Room Air 06/28/17 19:55 70 06/28/17 19:51 66 18 137/71 96 Room Air 06/28/17 19:39 36.7 74 18 126/67 95 Room Air Physical Exam General: Non-ill, non-toxic appearing middle age female in no acute distress. HEENT: Normal cephalic atraumatic. Pupils are equal round and reactive to light. Extraocular movements are intact. Oropharynx is pink with moist mucous membranes. No swelling of the mouth lips or tongue. Tympanic membranes normal bilaterally. no tenderness over mastoids. Neck: Supple with a midline trachea. No meningeal signs or stiffness, no JVD or bruits. No Stridor. Chest: Clear to auscultation bilaterally. No wheezes or rhonchi. No increased work of breathing. Heart: regular rate and rhythm. Abdomen: Soft nontender, nondistended without rebound guarding or rigidity. Extremities: No cyanosis clubbing or edema. No calf tenderness or assymetry Spine/Back. Non tender to palpation. No CVA tenderness Skin: Good turgor without rashes. Neurologic exam: Cranial nerves two through 12 are intact. Motor and sensation are intact and symmetrical throughout. Medical Decision & Procedures ER Provider Diagnostic Interpretation: Radiology results as stated below per my review and radiologist interpretation: CT HEAD WITHOUT CONTRAST (CT) FINDINGS: No intra or extra-axial mass lesions are visualized. There is no CT evidence of acute cortical infarction. There is no evidence of midline shift. There is no acute hemorrhage. No calvarial fractures are visualized. There are few prominent perivascular spaces There is no evidence of pathologic ventricular dilatation. There is no evidence of acute sinusitis IMPRESSION: No acute intracranial findings Electronically signed by: Nabeel Browning M.D. 06/28/2017 8:36 PM Laboratory Results 06/28/17 20:00 Red Blood Count 4.25, Mean Corpuscular Volume 98.1, Mean Corpuscular Hemoglobin 34.4, Mean Corpuscular Hemoglobin Concent 35.0, Mean Platelet Volume 9.7, Neutrophils (%) (Auto) 54.4, Lymphocytes (%) (Auto) 33.7, Monocytes (%) (Auto) 8.8, Eosinophils (%) (Auto) 2.3, Basophils (%) (Auto) 0.6, Neutrophils # (Auto) 2.58, Lymphocytes # (Auto) 1.60, Monocytes # (Auto) 0.42, Eosinophils # (Auto) 0.11, Basophils # (Auto) 0.03 06/28/17 20:00 Test 06/28/17 20:00 06/28/17 20:09 White Blood Count 4.75 K/uL (4.8-10.8) Red Blood Count 4.25 M/uL (4.2-5.4) Hemoglobin 14.6 g/dL (12.0-16.0) Hematocrit 41.7 % (37-47) Mean Corpuscular Volume 98.1 fL (80-100) Mean Corpuscular Hemoglobin 34.4 pg (25-34) Mean Corpuscular Hemoglobin Concent 35.0 g/dl (32-36) Platelet Count 206 K/uL (130-400) Mean Platelet Volume 9.7 fL (7.4-10.4) Neutrophils (%) (Auto) 54.4 % Lymphocytes (%) (Auto) 33.7 % Monocytes (%) (Auto) 8.8 % Eosinophils (%) (Auto) 2.3 % Basophils (%) (Auto) 0.6 % Neutrophils # (Auto) 2.58 K/uL (1.4-6.5) Lymphocytes # (Auto) 1.60 K/uL (1.2-3.4) Monocytes # (Auto) 0.42 K/uL (0.11-0.59) Eosinophils # (Auto) 0.11 K/uL (0-0.5) Basophils # (Auto) 0.03 K/uL (0-0.2) RDW Standard Deviation 45.0 fL (36.4-46.3) RDW Coefficient of Variation 12.7 % (11.5-14.5) Immature Granulocyte % (Auto) 0.2 % Immature Granulocyte # (Auto) 0.01 K/uL (0.00-0.02) Anion Gap 5.0 mmol/L (3-11) Est Creatinine Clear Calc Drug Dose 76.6 ml/min Estimated GFR () 96.8 Estimated GFR (Non- 83.5 BUN/Creatinine Ratio 23.2 (10-20) Calcium Level 8.8 mg/dl (8.5-10.1) Total Bilirubin 0.3 mg/dl (0.2-1) Direct Bilirubin mg/dl (0-0.2) Aspartate Amino Transf (AST/SGOT) 23 U/L (15-37) Alanine Aminotransferase (ALT/SGPT) 34 U/L (12-78) Alkaline Phosphatase 84 U/L (45-117) Total Protein 7.0 gm/dl (6.4-8.2) Albumin 3.5 gm/dl (3.4-5.0) Lipase 271 U/L (73-393) Chemistry Specimen Hemolysis Bedside Troponin I < 0.030 ng/ml (0-0.045) Laboratory studies as stated above per my review. Medications Administered Medications (Trade) Dose Ordered Sig/Moni Route Start Time Stop Time Status Last Admin Dose Admin Hydromorphone HCl (Dilaudid Inj) 0.5 mg NOW STAT IV 06/28/17 19:54 06/28/17 19:56 DC 06/28/17 20:07 0.5 MG Ondansetron HCl (Zofran Inj) 4 mg NOW STAT IV 06/28/17 19:54 06/28/17 19:56 DC 06/28/17 20:06 4 MG Hydromorphone HCl (Dilaudid Inj) 0.5 mg NOW STAT IV 06/28/17 20:46 06/28/17 20:48 DC 06/28/17 20:57 0.5 MG ECG Indication: other (dizziness) Rate (beats per minute): 66 Rhythm: normal sinus Findings: no acute ischemic change, no ectopy ED Course 1943: Past medical records reviewed. The patient was evaluated in room A3, and a complete history and physical examination were performed. 1953: Zofran Inj 4mg IV, Dilaudid Inj 0.5mg IV 2039: I reevaluated and updated the patient. She states that her pain is a 5/ 10. She will receive more Dilaudid. 2045: Dilaudid Inj 0.5mg IV 2218: Upon reevaluation, the patient is stable. I discussed the results and treatment plan with her. She verbalized agreement of the treatment plan. The patient was discharged home. Medical Decision Differential diagnoses include: migraine, intracranial mass/hemorrhage/ meningitis, cardiac disease, sinus disease, and electrolyte/metabolic abnormalities. This patient comes in as described above. She was placed in room A3. This has been going on for over 2 weeks. Her daughter made her her come here and she is concerned she needs a CAT scan as a family friend brain tumor. It also hurts in her neck although she does have chronic neck problems. She appears well and nontoxic on exam. She has nothing to suggest meningitis or encephalitis. She' s had no fever. She has no neurologic symptoms in as a normal neurologic exam. Her EKG is unremarkable does not suggest acute coronary syndrome or arrhythmia. She was given IV Dilaudid 0.5 mg as well as IV Zofran. Her daughter is driving. With the Dilaudid her pain went down significantly she did require a second dose and was resting very comfortably. CAT scan is unremarkable. Blood work is unremarkable. She is no white count or fever to suggest infection. She has no acute electrode or metabolic abnormality. This may be related to her neck and this is going on for 2 weeks. I do not this is an infectious process. I do not feel she is a spinal tap and she will be discharged to home. She does have hydrocodone at home which I told her that she can use but keep in mind that it can sedate her and do not take before drinking, driving, working . do not take with any medications contain Tylenol. She should probably doctor this coming week and return here over the weekend if : symptoms worsen. She is happy with plan and discharged to home. Medication Reconcilliation Current Medication List: was personally reviewed by me Blood Pressure Screening Patient's blood pressure: Normal blood pressure Blood pressure disposition: Did not require urgent referral Impression Primary Impression: Headache Scribe Attestation The scribe's documentation has been prepared under my direction and personally reviewed by me in its entirety. I confirm that the note above accurately reflects all work, treatment, procedures, and medical decision making performed by me. Departure Information Dispostion Home / Self-Care Referrals Ghassan Ferrara M.D. (PCP) Forms HOME CARE DOCUMENTATION FORM, IMPORTANT VISIT INFORMATION Patient Instructions My [facility] Additional Instructions Rest. Drink plenty of fluids. May continue to use your hydrocodone but do not exceed the recommended dosages on your bottle. Do not take with any acetaminophen/Tylenol products The hydrocodone can make you drowsy and be careful after taking and do not take before drinking, driving, working Return if: Increasing pain, worsening of symptoms, numbness or weakness, fever or chills, any new problems or concerns. Follow-up with your doctor next week for recheck. Return to ER over the weekend if symptoms worsen
[2017-06-28 20:12] LABS: BASO % 0.6 %; BASO ABS # 0.03 K/uL (0-0.2); COMPLETE YES; EOS % 2.3 %; HEMATOCRIT 41.7 % (37-47); IG% 0.2 %; LYMPH % 33.7 %; MEAN CELL VOLUME 98.1 fL (80-100); MEAN CORPUSCULAR HEMOGLOBIN 34.4 pg (25-34); MEAN PLATELET VOLUME 9.7 fL (7.4-10.4); MONO % 8.8 %; NEUT % 54.4 %; PLATELET COUNT 206 K/uL (130-400); RED BLOOD COUNT 4.25 M/uL (4.2-5.4); WHITE BLOOD COUNT 4.75 K/uL (4.8-10.8)
--- NOTE | 2017-06-28 20:37 | DIAGNOSTIC IMAGING REPORT ---
CT HEAD WITHOUT CONTRAST (CT) CLINICAL HISTORY: Severe headache COMPARISON STUDY: 08/25/2010 TECHNIQUE: Axial CT of the brain is performed from the vertex to the skull base. IV contrast was not administered for this examination. A dose lowering technique was utilized adhering to the principles of ALARA. CT DOSE: 537.48 mGy.cm FINDINGS: No intra or extra-axial mass lesions are visualized. There is no CT evidence of acute cortical infarction. There is no evidence of midline shift. There is no acute hemorrhage. No calvarial fractures are visualized. There are few prominent perivascular spaces There is no evidence of pathologic ventricular dilatation. There is no evidence of acute sinusitis IMPRESSION: No acute intracranial findings Electronically signed by: Nabeel Browning M.D. 06/28/2017 8:36 PM Dictated Date/Time: 06/28/2017 8:33 PM
[2017-06-28] MEDS ORDERED: PRAV40TA PO (20:43)
[2017-06-28] MEDS ORDERED: CALCTAB65 PO (20:43)
[2017-06-28] MEDS ORDERED: KRIL1000 PO (20:43)
[2017-06-28] MEDS ORDERED: APRE1TAB3 PO (20:43)
[2017-06-28] MEDS ORDERED: CLX/20 PO (20:43)
[2017-06-28] MEDS ORDERED: CRAN1CAP14 PO (20:43)
[2017-06-28] MEDS ORDERED: CLB/200 PO (20:43)
[2017-06-28] MEDS ORDERED: TMPOPS15 OPB (20:43)
[2017-06-28] MEDS ORDERED: METH2.5T PO (20:44)
[2017-06-28] MEDS ORDERED: PRLSR20 PO (20:44)
[2017-06-28] MEDS ORDERED: [UNRECOGNIZED DRUG - CODE] NAE (20:44)
[2017-06-28] MEDS ORDERED: AZEL0.1S2 NAE (20:44)
[2017-06-28] MEDS ORDERED: FOLI1TAB8 PO (20:44)
[2017-06-28 20:57] LABS: BUN/CREATININE RATIO 23.2 (10-20); CALCIUM 8.8 mg/dl (8.5-10.1); CREATININE 0.76 mg/dl (0.60-1.20); POTASSIUM 3.9 mmol/L (3.5-5.1)
[2017-06-28 22:26] VITALS: BP 131/65; PULSE 67; O2SAT 97
== END 2017-06-28 22:20 | disposition home or self-care (01) ==
LOC: C.EDB 19:34 → C.EDA 22:20
DX: R51 Headache (principal); M50.10 Cervical disc disorder with radiculopathy, unspecified cervical region; I10 Essential (primary) hypertension; K21.9 Gastro-esophageal reflux disease without esophagitis; E78.5 Hyperlipidemia, unspecified; Z83.3 Family history of diabetes mellitus; Z82.49 Family history of ischemic heart disease and other diseases of the circulatory system; Z82.3 Family history of stroke; Z83.511 Family history of glaucoma

== ENCOUNTER 2017-08-10 11:48 | Emergency (ER) | payer BC ==
[~2017-08-10] VITALS: Ht 165.1 cm; Wt 75.0 kg
[~2017-08-10 11:48] MED LIST changes: -AUG0.05O4 TOP; +AZEL0.1S2 NAE; -BROM0.07 OPR; -CALC-388 PO; -CALC1CHW PO; -CALC3OIN TOP; +CALCTAB65 PO; -CITA20TA9 PO; -CLR10 PO; +CLX/20 PO; +CRAN1CAP14 PO; -CRANPOW PO; +KRIL1000 PO; -KRIL1CAP24 PO; -OMEP20TA PO; +PRAV40TA PO; -PRAV40TA2 PO; -PRED1SUS OPR; +PRLSR20 PO; -SALI0.6510; +TMPOPS15 OPB; -VNTHFA/IN INH; +[UNRECOGNIZED DRUG - CODE] NAE; -[UNRECOGNIZED DRUG - CODE] OPB
[2017-08-10 11:50] VITALS: Ht 165.1 cm; Wt 75.0 kg
--- NOTE | 2017-08-10 12:38 | DIAGNOSTIC IMAGING REPORT ---
L KNEE 3 VIEWS CLINICAL HISTORY: Left knee pain following twisting injury. COMPARISON: Left knee radiographs March 14, 2012. FINDINGS: Alignment of the left knee is anatomic. No fracture is identified. A moderate left knee joint effusion is present. There is mild medial compartment joint space narrowing as well as osteophytosis within the medial and patellofemoral compartments. IMPRESSION: 1. No acute fracture. 2. Moderate left knee joint effusion. 3. Mild to moderate osteoarthritis of the left knee, most pronounced within the medial and patellofemoral compartments. Electronically signed by: Aldair Power M.D. 08/10/2017 12:37 PM Dictated Date/Time: 08/10/2017 12:35 PM
--- NOTE | 2017-08-10 14:00 | EMERGENCY ROOM VISIT NOTE ---
History First contact with patient: 12:01 Chief Complaint: KNEEPAIN Stated Complaint: LEFT KNEE PAIN History of Present Illness The patient is a 62 year old female who presents to the Emergency Room with complaints of persistent left knee pain with swelling. The patient reports twisting the knee a few weeks ago. She has not followed up with her family doctor or orthopedic surgeon. The patient has had a prior history of left knee arthroscopy approximately 10 years ago. This surgery was performed by Dr. Ralph. The patient reports difficulty with ambulation because of the pain. She has not noticed any clicking, locking or instability of the knee. She has a history of back problems, but does not feel that this is related to her back. She denies any redness or increased warmth of the knee. She denies any other recent infections or chills. She rates her discomfort an 8 out of 10 with weightbearing and ambulation. Review of Systems 10 system review was performed and was negative except for pertinent positives and negatives as indicated in history of present illness Past Medical/Surgical History Medical Problems: (1) Allergic rhinitis (2) Breast cancer (3) Cervical disc disorder with radiculopathy (4) Cervical herniated disc (5) DJD (degenerative joint disease), cervical (6) Dyslipidemia (7) Fibromyalgia (8) GERD (gastroesophageal reflux disease) (9) h/o BCC (10) H/O bronchitis (11) h/o dysphagia (12) H/o palpitations (13) h/o peripheral vertigo (14) History of TMJ disorder (15) Hypertension (16) Left shoulder pain (17) Psoriatic arthritis (18) Sensorineural hearing loss (SNHL), bilateral Surgical Problems: (1) H/O colonoscopy (2) H/o EGD (3) S/p drainage of ovarian cyst (4) S/p drainage of salivary gland abscess (5) S/p left knee meniscus surgery Family History Diabetes mellitus FATHER FH: CAD (coronary artery disease) FATHER ([place] in 40s) UNCLE ( of [place] in 30s) UNCLE ( of [place] in 40's) FH: glaucoma MOTHER Stroke PATERNAL GRANDMOTHER Social History Smoking Status: Never Smoker Alcohol Use: occasionally Drug Use: none Marital Status: Occupation Status: disabled Current/Historical Medications Scheduled Apremilast (Otezla), 60 MG PO BID Azelastine HCl (Azelastine Hydrochloride), 1 SPRAY YAW DAILY Calcium Carbonate-Vitamin D (Calcium 500 + D), 1 TAB PO DAILY Celecoxib (CeleBREX), 200 MG PO DAILY Citalopram (Citalopram Hydrobromide), 30 MG PO DAILY Cranberry-Vitamin C-Vitamin E (Cranberry Plus Vitamin C), 4 CAP PO DAILY Folic Acid (Folvite), 1 MG PO DAILY Krill Oil (Krill Oil), 500 MG PO DAILY Methotrexate (Methotrexate), 10 MG PO WK Omeprazole (Prilosec), 20 MG PO DAILY Pravastatin Sodium (Pravachol), 40 MG PO DAILY Scheduled PRN Saline ([place] Nasal Mist Allergy &), 1 SPRAY YAW DAILY PRN for ALLERGIES Physical Exam Vital Signs Date Time Temp Pulse Resp B/P (MAP) Pulse Ox O2 Delivery O2 Flow Rate FiO2 08/10/17 11:50 36.6 74 18 124/74 97 Room Air Physical Exam CONSTITUTIONAL: Healthy and well nourished. Alert and oriented X 3 with positive affect. Patient does not appear in any acute distress on exam. HEENT: Normocephalic, atraumatic. Pupils equal, round and reactive. NECK: Full active range of motion without discomfort. MUSCULOSKELETAL: Examination of the left knee shows mild edema without erythema. No increased warmth to palpation. A mild to moderate joint effusion is noted. Negative ballottement. The patient has notable tenderness to palpation over the posterior medial joint line. MCL is intact with valgus stress. She has no tenderness over the lateral joint line, peripatellar region , hamstrings or proximal leg. No popliteal masses. Distal pulses are intact. INTEGUMENTARY: No rash or other significant dermatologic conditions noted. NEUROLOGIC: No focal neurologic deficits noted. Medical Decision & Procedures ER Provider Diagnostic Interpretation: My interpretation of left knee x-rays shows a moderate joint effusion with moderate medial compartment and patellofemoral osteoarthritis. No obvious fractures noted. Radiologist report is as follows: L KNEE 3 VIEWS CLINICAL HISTORY: Left knee pain following twisting injury. COMPARISON: Left knee radiographs March 14, 2012. FINDINGS: Alignment of the left knee is anatomic. No fracture is identified. A moderate left knee joint effusion is present. There is mild medial compartment joint space narrowing as well as osteophytosis within the medial and patellofemoral compartments. IMPRESSION: 1. No acute fracture. 2. Moderate left knee joint effusion. 3. Mild to moderate osteoarthritis of the left knee, most pronounced within the medial and patellofemoral compartments. ED Course Patient history and physical exam were performed. Nurse's notes were reviewed. Vital signs were reviewed and were normal. She refused any analgesics while in the emergency department. X-rays of the left knee shows a moderate joint effusion with moderate medial compartment and patellofemoral degenerative changes. A knee immobilizer was applied. The patient reports that she does have both crutches and a cane at home. She was encouraged to intermittently apply ice and elevate the knee for swelling. The patient reports that she sees Dr. Colindres, instrument technician apprentice for her psoriatic arthritis. She usually takes Celebrex 200 mg daily. I suggested that she discuss possibly increasing the dose of her Celebrex. She may also take Tylenol for additional pain relief. She was instructed to follow-up with [facility] for further reevaluation and management. The patient was happy with plan of care, voiced understanding of all discharge instructions, and rated her discomfort a 4 out of 10 at the conclusion of my exam. Medical Decision I suspect some type of internal derangement from her recent injury to the knee. Possibilities include acute synovitis, meniscal tear, occult fracture or ligamentous injury. Her ligamentous exam today is unremarkable. I do not suspect septic knee, gout or other infectious etiologies. Impression Primary Impression: Effusion of left knee Departure Information Referrals Ghassan Ferrara M.D. (PCP) Patient Instructions My [facility]
[2017-08-10 14:03] VITALS: BP 124/74; PULSE 74; TEMP 36.6; O2SAT 97
== END 2017-08-10 14:04 | disposition home or self-care (01) ==
LOC: C.EDB 11:49 → C.EDD 14:04
DX: M25.562 Pain in left knee (principal); M25.462 Effusion, left knee; Z85.3 Personal history of malignant neoplasm of breast; E78.5 Hyperlipidemia, unspecified; K21.9 Gastro-esophageal reflux disease without esophagitis; I10 Essential (primary) hypertension; H90.3 Sensorineural hearing loss, bilateral; Z83.3 Family history of diabetes mellitus; Z82.49 Family history of ischemic heart disease and other diseases of the circulatory system; Z82.3 Family history of stroke; Z83.511 Family history of glaucoma; Z79.899 Other long term (current) drug therapy

== ENCOUNTER → 2017-08-27 | Outpatient (CLI) | payer BC ==
[~2017-08-27] MED LIST changes: -TMPOPS15 OPB
--- NOTE | 2017-08-28 08:02 | MAMMOGRAPHY REPORT ---
BILATERAL DIGITAL SCREENING MAMMOGRAM TOMOSYNTHESIS WITH CAD: 08/27/2017 CLINICAL HISTORY: Asymptomatic. Personal history of breast cancer. TECHNIQUE: Breast tomosynthesis in addition to standard 2D mammography was performed. Current study was also evaluated with a Computer Aided Detection (CAD) system. COMPARISON: Comparison is made to exams dated: 08/22/2015 mammogram, 08/24/2016 mammogram, 08/19/2014 m ammogram, 08/18/2013 mammogram, 08/06/2012 mammogram, and 07/26/2011 mammogram - [facility] enter. BREAST COMPOSITION: There are scattered areas of fibroglandular density in both breasts. FINDINGS: No new suspicious mass, architectural distortion or cluster of microcalcifications is seen . There are stable postsurgical changes in both breasts, with numerous benign rim calcifications julissa aterally, and expected architectural distortion most prominent in the upper outer anterior left breas t. Surgical clips project over the left pectoralis muscle on the MLO view. IMPRESSION: ACR BI-RADS CATEGORY 1: NEGATIVE There is no mammographic evidence of malignancy. A 1 year screening mammogram is recommended. The pa tient will receive written notification of the results. Approximately 10% of breast cancers are not detected with mammography. A negative mammographic report should not delay biopsy if a clinically suggestive mass is present. Muna Gonzalez M.D. ay/:08/27/2017 15:53:04 [employer] Instructor: [facility] letter sent: Normal 1/2 BI-RADS Code: ACR BI-RADS Category 1: Negative
== END | disposition home or self-care (01) ==
LOC: C.MAMM 10:23
PROVIDERS: ATTEND Obstetrics & Gynecology
DX: Z12.31 Encounter for screening mammogram for malignant neoplasm of breast (principal); Z85.3 Personal history of malignant neoplasm of breast

== ENCOUNTER 2020-05-08 21:39 | Inpatient (IN) ==
[2020-05-08] MEDS ORDERED: guaiFENesin 600 MG TABCR PO STA (22:17)
[2020-05-08] MEDS ORDERED: DEXAMETHASONE SOD INJ 10 MG/ML VIAL IV ONE (22:17)
[2020-05-08] MEDS ORDERED: ALBUTEROL HFA 8 GM INHALER INH ONE (22:17)
[2020-05-08] MEDS ORDERED: SODIUM CHLORIDE 0.9% 1000ML 1,000 ML IV SCH ×2 (22:30→23:19)
[2020-05-08 22:45] LABS: Hematocrit (blood only) 41.1 % (37-47); Hemoglobin 13.8 g/dL (12.0-16.0); Lymphocytes # (auto) 0.98 K/uL (1.2-3.4); Lymphocytes % (auto) 29.3 %; Mean Corpuscular Hemoglobin 32.9 pg (25-34); Mean Corpuscular Hgb Conc 33.6 g/dL (32-36); Mean Corpuscular Volume 98.1 fL (80-100); Neutrophils # (auto) 1.96 K/uL (1.4-6.5); Neutrophils % (auto) 58.7 %; Platelet Count 146 K/uL (130-400); RDW Coefficient of Variation 12.2 % (11.5-14.5); RDW Standard Deviation 43.7 fL (36.4-46.3); Red Blood Count 4.19 M/uL (4.2-5.4); White Blood Count 3.34 K/uL (4.8-10.8)
[2020-05-08 22:57] LABS: Partial Thromboplastin Ratio 1.1; Partial Thromboplastin Time 31.1 Seconds (21.0-31.0); Prothrombin Time 10.8 Seconds (9.0-12.0)
[2020-05-08 22:59] LABS: D Dimer 1350 ug/L FEU (0-500)
[2020-05-08 23:02] LABS: Alanine Aminotransferase 27 U/L (12-78); Albumin Level 2.6 gm/dl (3.4-5.0); Aspartate Aminotransferase 25 U/L (15-37); BUN Creatinine Ratio 17.2 (10-20); Bilirubin Direct < 0.1 mg/dl (0-0.2); Blood Urea Nitrogen 13 mg/dl (7-18); Calcium 7.9 mg/dl (8.5-10.1); Carbon Dioxide 25 mmol/L (21-32); Chloride 104 mmol/L (98-107); Creatinine Clr Calc Pharmacy 74.4 ml/min; Est GFR (African American) 96.3; Est GFR (Non-African American) 83.1; Glucose 174 mg/dl (70-99); Magnesium 1.8 mg/dl (1.8-2.4); Potassium 3.5 mmol/L (3.5-5.1); Sodium 136 mmol/L (136-145)
[2020-05-08 23:08] LABS: Albumin Globulin Ratio 0.6 (0.9-2); Alkaline Phosphatase 76 U/L (45-117); Bilirubin,Total 0.3 mg/dl (0.2-1); Globulin 4.2 gm/dl (2.5-4.0); Phosphorus 2.2 mg/dl (2.5-4.9); Total Protein 6.8 gm/dl (6.4-8.2); Troponin I < 0.015 ng/ml (0-0.045)
[2020-05-08 23:15] LABS: Base Excess VBG 0.3 mEq/L; HCO3 VBG 26 mmol/L; PCO2 VBG 46 mmHg (38-50); PO2 VBG 31 mmHg; pH VBG 7.37 (7.36-7.41)
[2020-05-08 23:30] LABS: Oxygen Saturation VBG < 60.0 %
[2020-05-08] MEDS ORDERED: OPTIRAY 320 125ml IV ONE (23:50)
--- NOTE | 2020-05-08 23:52 | Emergency Department Note ---
Impression & Plan Pneumonia due to COVID-19 virus, Hypoxia, Long-term current use of apremilast, History of breast cancer, Use of tamoxifen (Nolvadex) ED Provider Note NAME: NIA FAYE AGE: 65 SEX: F ARRIVES VIA: Walk-In INFORMANT: Patient, ED PROVIDER(S): Ulises Sommers MD CHIEF COMPLAINT: Covid19, shortness of breath. PLAN: Disposition: Admit MEDICAL DECISION MAKING: The patient is a pleasant 65-year-old woman with a past medical history of prior breast cancer on tamoxifen, history of psoriatic arthritis on otezla who presents emerged department with worsening shortness of breath, cough and fevers over the past several days in the setting of having onset of symptoms a week ago when she was diagnosed with COVID-19 with presumed exposure through her granddaughter who contracted COVID-19 at her high school. The patient reports her entire family has COVID-19. She reports some shortness of breath and chest pain with deep breaths. She denies any prior history of blood clots in her legs or lungs. On arrival the patient is uncomfortable, mildly dyspneic but in no acute distress, afebrile with heart rate in the 120s and oxygen saturation 90-91% at rest but upon mild exertion within the room she would go down to 89% and have an increase in her heart rate. Therefore she was placed on 2 L nasal cannula with subsequent improvement in her dyspnea. EKG without overt acute ischemia. CXR with hazy interstitial thickening per my review. WBC 3.3, nonspecific. H/H and platelets within normal limits. She has mild lymphopenia at 0.9 consistent with her diagnosis of COVID-19. Chemistry without acidosis. Lactate 1.9 within normal limits. Troponin negative/undetectable. Procalcitonin<0.05. The patient's D-dimer was elevated and therefore a CTA of the chest was performed but negative for PE. She does have patchy bilateral gr oundglass opacities that are consistent with COVID-19 pneumonia. Patient did feel improved after IVF hydration, Dexamethasone, Albuterol MDI, and Mucinex. However, given the patient's high risk in the setting of hypoxia with COVID-19 reasonable to admit the patient for management. She is agreeable. Case was discussed with Dr. Moody, [facility] hospitalist, who will evaluate the patient for admission. Triage Nursing notes reviewed and agree them. Prior medical records reviewed Vital Signs: reviewed and remarkable for hypoxia. Differential diagnosis: Reactive airway disease, pneumonia, pneumothorax, COPD, CHF, infections, cardiac ischemia, pulmonary embolism, musculoskeletal, gastrointestinal, as well as other pathologies. ER treatment provided: See below. Diagnostics interpreted by me: ECG: NSR, 94 bpm, no ectopy, no overt ST elevation or depression. Cardiac Monitoring: An order for continuous cardiac monitoring was placed and demonstrated NSR, 94 bpm, no ectopy. Laboratory studies: See below Imaging studies: CXR: hazy interstitial thickening per my review. [facility] Preliminary Findings Only See Final Report For Complete Findings CTA CHEST: Comparison: CT chest 08/21/18. Patchy bilateral groundglass and mildly consolidative opacities, many in a subpleural location, concerning for pneumonia, suspicious for Covid-19 pneumonia. No pleural effusion or pneumothorax. No acute pulmonary embolism. No right ventricular strain. No thoracic aortic aneurysm or dissection. No pericardial effusion. Bilateral breast implants. No acute osseous findings. Hepatic steatosis. Radiologist: Nagi Licona M.D. Study ready at 23:58 and initial results transmitted at 00:12 Consultation(s): Case was discussed with Dr. Moody, [facility] hospitalist, who will evaluate the patient for admission. HPI: The patient is a pleasant 65-year-old woman with a past medical history of prior breast cancer on tamoxifen, history of psoriatic arthritis on otezla who presents emerged department with worsening shortness of breath, cough and fevers over the past several days in the setting of having onset of symptoms a week ago when she was diagnosed with COVID-19 with presumed exposure through her granddaughter who contracted COVID-19 at her high school. The patient reports her entire family has COVID-19. She reports some shortness of breath and chest pain with deep breaths. She denies any prior history of blood clots in her legs or lungs. ROS: See above HPI for pertinent positives & negatives. A total of 10 systems reviewed and were otherwise negative. PAST MEDICAL HISTORY:See Below PAST SURGICAL HISTORY:See Below FAMILY HISTORY:See Below SOCIAL HISTORY:See Below HOME MEDICATIONS:See Below ALLERGIES:See Below VITALS:See Below PHYSICAL EXAMINATION: GENERAL: Awake, alert, fatigued, mildly dyspneic-appearing, in no distress HENT: Normocephalic, atraumatic. Oropharynx with dry mucous membranes and otherwise unremarkable. EYES: Normal conjunctiva. Sclera non-icteric. NECK: Supple. No nuchal rigidity. FROM. No JVD. RESPIRATORY: Scant intermittent wheeze otherwise clear to auscultation. CARDIAC: Regular rate, normal rhythm. Extremities warm and well perfused. Pulses equal. ABDOMEN: Soft, non-distended. No tenderness to palpation. No rebound or guarding. No masses. RECTAL: Deferred. MUSCULOSKELETAL: Chest examination reveals no tenderness. The back is symmetrical on inspection without obvious abnormality. There is no CVA tendernes s to palpation. No joint edema. LOWER EXTREMITIES: Calves are equal size bilaterally and non-tender. No edema. No discoloration. NEURO: Normal sensorium. No sensory or motor deficits noted. SKIN: No rash or jaundice noted. Ulises Sommers MD Past Med/Surg History Medical History (Updated 05/09/20 @ 06:18 by Ulises Sommers MD) Acid reflux Allergic rhinitis Anxiety Breast cancer "diagnosed in 1993, and then reoccurrence 2002, intraductal. B/L Radiation with both " Depression DJD (degenerative joint disease), cervical Dyslipidemia Fibromyalgia GERD (gastroesophageal reflux disease) H/O malignant neoplasm of breast Bilateral lumpectomy with radiation therapy Heart murmur History of TMJ disorder WAS TOLD BY PCP Hyperlipidemia Psoriasis Psoriatic arthritis "chronic methotrexate use" Psoriatic arthritis Thyroid disorder MISSING LEFT TYROID Surgical History Fusion of spine C3-4 H/O colonoscopy History of carpal tunnel release RIGHT AND LEFT History of cataract surgery RIGHT AND LEFT History of laminectomy LUMBAR History of throat surgery CYST OFF OF UVULA History of tooth extraction WISDOM TEETH Hx of arthroscopic knee surgery LEFT Hx of arthroscopy of shoulder UNSURE OF WHICH SHOULDER Hx of foot surgery X3 FOR GANGLION CYST REMOVAL (RIGHT) Hx of laparoscopy OVARIAN CYST REMOVED Hx of parotidectomy LEFT SIDE S/P bilateral breast lumpectomy Social History Smoking Status: Former smoker Second Hand Exposure: No; Do You Dip or Chew Tobacco: No; Tobacco Cessation Education Requested by Patient: No Hx Alcohol Use: No Hx Substance Use: No Preferred Language: Yemeni Communication Ability: Effective Visual Impairment: Limited Antenna Specialist Required: No Beliefs That Will Affect Care: None Current Living Situation: Family Other Information That Helps Us Care for You: No Feels Safe at Home: Yes Safety Concerns: Feels Safe At This Time Assistive Devices: None Allergies Allergies Allergy/AdvReac Type Severity Reaction Status Date / Time doxycycline Allergy Unknown Hives Verified 05/08/20 23:30 sulfamethoxazole Allergy Unknown insomnia Verified 05/08/20 23:30 trimethoprim Allergy Unknown insomnia Verified 05/08/20 23:30 clarithromycin AdvReac Intermediate INSOMNIA Verified 05/08/20 23:30 TACHYCARDIA codeine AdvReac Mild Severe Verified 05/08/20 23:30 drowsiness Tetracyclines AdvReac Mild Nausea Verified 05/08/20 23:30 Home Meds Home Medications Medication Instructions Recorded Confirmed omeprazole 20 mg PO QAM 04/15/18 05/08/20 cetirizine [Zyrtec] 10 mg PO QAM 07/08/19 05/09/20 pravastatin 40 mg PO HS 03/14/20 05/08/20 tamoxifen 20 mg PO HS 03/14/20 05/08/20 venlafaxine 75 mg PO QAM 03/14/20 05/08/20 apremilast [Otezla] 30 mg PO BID 05/09/20 05/09/20 Previous Rx's Medication Instructions Recorded meclizine 25 mg PO TID PRN #20 tab 03/14/20 Results & Data (ED) Vital Signs Vital Signs - 24 hr 05/08/20 21:47 05/08/20 22:41 05/08/20 23:50 Temperature 37.4 C Temperature Source Oral Pulse Rate 120 H Pulse Rate [Right] 93 H 90 Pulse Rhythm [Right] Regular Pulse Strength [Right] Normal Respiratory Rate 18 16 18 Respiratory Effort / Characteristics Non-Labored Non-Labored Spontaneous Respiratory Depth Normal Normal Blood Pressure 112/65 Blood Pressure [Right Arm] 130/76 135/70 Blood Pressure Mean 80 Blood Pressure Mean [Right Arm] 94 91 Blood Pressure Position [Right Arm] Sitting Sitting Pulse Oximetry 90 96 96 Oxygen Delivery Method Room Air Nasal Cannula Nasal Cannula Oxygen Flow Rate 2 2 Sepsis Recent Fever Within 48 Hours Yes Sepsis New/Unexplained Change in Mental Status No Sepsis Action Taken by Nursing No Action Required 11/02/20 01:31 Temperature Temperature Source Pulse Rate Pulse Rate [Right] 81 Pulse Rhythm [Right] Regular Pulse Strength [Right] Normal Respiratory Rate 16 Respiratory Effort / Characteristics Non-Labored Spontaneous Respiratory Depth Normal Blood Pressure Blood Pressure [Right Arm] 106/62 Blood Pressure Mean Blood Pressure Mean [Right Arm] 76 Blood Pressure Position [Right Arm] Lying Pulse Oximetry 97 Oxygen Delivery Method Nasal Cannula Oxygen Flow Rate 2 Sepsis Recent Fever Within 48 Hours Sepsis New/Unexplained Change in Mental Status Sepsis Action Taken by Nursing Laboratory Data Result diagrams: 05/08/20 22:32 05/08/20 22:32 Lab Results 05/08/20 05/08/20 05/08/20 Range/Units 22:32 22:32 22:32 WBC 3.34 L (4.8-10.8) K/uL RBC 4.19 L (4.2-5.4) M/uL Hgb 13.8 (12.0-16.0) g/dL Hct 41.1 (37-47) % MCV 98.1 (80-100) fL MCH 32.9 (25-34) pg MCHC 33.6 (32-36) g/dL RDW Std Deviation 43.7 (36.4-46.3) fL RDW Coeff of Suzanne 12.2 (11.5-14.5) % Plt Count 146 (130-400) K/uL MPV 10.0 (7.4-10.4) fL Immature Gran % (Auto) 0.0 % Neut % (Auto) 58.7 % Lymph % (Auto) 29.3 % Citrus % (Auto) 12.0 % Eos % (Auto) 0.0 % Baso % (Auto) 0.0 % Neut # (Auto) 1.96 (1.4-6.5) K/uL Lymph # (Auto) 0.98 L (1.2-3.4) K/uL Citrus # (Auto) 0.40 (0.11-0.59) K/uL Eos # (Auto) 0.00 (0-0.5) K/uL Baso # (Auto) 0.00 (0-0.2) K/uL Immature Gran # (Auto) 0.00 (0.00-0.02) K/uL PT 10.8 (9.0-12.0) Seconds INR 1.0 (0.9-1.1) APTT 31.1 H (21.0-31.0) Seconds PTT Ratio 1.1 D-Dimer 1350 H* (0-500) ug/L FEU VBG pH (7.36-7.41) VBG pCO2 (38-50) mmHg VBG pO2 mmHg VBG HCO3 mmol/L VBG O2 Saturation % VBG Base Excess mEq/L Barometric Pressure mm/Hg Sodium 136 (136-145) mmol/L Potassium 3.5 (3.5-5.1) mmol/L Chloride 104 (98-107) mmol/L Carbon Dioxide 25 (21-32) mmol/L Anion Gap 7.0 (3-11) BUN 13 (7-18) mg/dl Creatinine 0.75 (0.6-1.2) mg/dl Est Cr Clr Drug Dosing 74.4 ml/min Est GFR ( Amer) 96.3 Est GFR (Non-Af Amer) 83.1 BUN/Creatinine Ratio 17.2 (10-20) Glucose 174 H (70-99) mg/dl Lactate (0.4-2.0) mmol/L Calcium 7.9 L (8.5-10.1) mg/dl Phosphorus 2.2 L (2.5-4.9) mg/dl Magnesium 1.8 (1.8-2.4) mg/dl Total Bilirubin 0.3 (0.2-1) mg/dl Direct Bilirubin < 0.1 (0-0.2) mg/dl AST 25 (15-37) U/L ALT 27 (12-78) U/L Alkaline Phosphatase 76 (45-117) U/L Troponin I < 0.015 (0-0.045) ng/ml Total Protein 6.8 (6.4-8.2) gm/dl Albumin 2.6 L (3.4-5.0) gm/dl Globulin 4.2 H (2.5-4.0) gm/dl Albumin/Globulin Ratio 0.6 L (0.9-2) Procalcitonin (0-0.5) ng/ml 05/08/20 05/08/20 05/08/20 Range/Units 22:32 22:32 22:58 WBC (4.8-10.8) K/uL RBC (4.2-5.4) M/uL Hgb (12.0-16.0) g/dL Hct (37-47) % MCV (80-100) fL MCH (25-34) pg MCHC (32-36) g/dL RDW Std Deviation (36.4-46.3) fL RDW Coeff of Suzanne (11.5-14.5) % Plt Count (130-400) K/uL MPV (7.4-10.4) fL Immature Gran % (Auto) % Neut % (Auto) % Lymph % (Auto) % Citrus % (Auto) % Eos % (Auto) % Baso % (Auto) % Neut # (Auto) (1.4-6.5) K/uL Lymph # (Auto) (1.2-3.4) K/uL Citrus # (Auto) (0.11-0.59) K/uL Eos # (Auto) (0-0.5) K/uL Baso # (Auto) (0-0.2) K/uL Immature Gran # (Auto) (0.00-0.02) K/uL PT (9.0-12.0) Seconds INR (0.9-1.1) APTT (21.0-31.0) Seconds PTT Ratio D-Dimer (0-500) ug/L FEU VBG pH 7.37 (7.36-7.41) VBG pCO2 46 (38-50) mmHg VBG pO2 31 mmHg VBG HCO3 26 mmol/L VBG O2 Saturation < 60.0 % VBG Base Excess 0.3 mEq/L Barometric Pressure 732.6 mm/Hg Sodium (136-145) mmol/L Potassium (3.5-5.1) mmol/L Chloride (98-107) mmol/L Carbon Dioxide (21-32) mmol/L Anion Gap (3-11) BUN (7-18) mg/dl Creatinine (0.6-1.2) mg/dl Est Cr Clr Drug Dosing ml/min Est GFR ( Amer) Est GFR (Non-Af Amer) BUN/Creatinine Ratio (10-20) Glucose (70-99) mg/dl Lactate 1.9 (0.4-2.0) mmol/L Calcium (8.5-10.1) mg/dl Phosphorus (2.5-4.9) mg/dl Magnesium (1.8-2.4) mg/dl Total Bilirubin (0.2-1) mg/dl Direct Bilirubin (0-0.2) mg/dl AST (15-37) U/L ALT (12-78) U/L Alkaline Phosphatase (45-117) U/L Troponin I (0-0.045) ng/ml Total Protein (6.4-8.2) gm/dl Albumin (3.4-5.0) gm/dl Globulin (2.5-4.0) gm/dl Albumin/Globulin Ratio (0.9-2) Procalcitonin < 0.05 (0-0.5) ng/ml Administered Medications Discontinued Medications Albuterol (Albuterol Hfa 8 Gm Inhaler) 2 puffs INH NOW ONE Stop: 05/08/20 22:18 Last Admin: 05/08/20 22:27 Dose: 2 puffs Documented by: [id number] Dexamethasone (Dexamethasone Sod Inj 10 Mg/Ml Vial) 10 mg IV NOW ONE Stop: 05/08/20 22:18 Last Admin: 05/08/20 22:27 Dose: 10 mg Documented by: [id number] Guaifenesin (Guaifenesin 600 Mg Tabcr) 600 mg PO NOW STA Stop: 05/08/20 22:18 Last Admin: 05/08/20 22:27 Dose: 600 mg Documented by: [id number] Sodium Chloride (Nss 1000ml) 1,000 mls @ 999 mls/hr IV .Q1H1M SHANIA Stop: 05/09/20 00:18 Last Infusion: 05/08/20 23:30 Dose: 0 mls/hr Documented by: [id number] Admin: 05/08/20 22:28 Dose: 999 mls/hr Documented by: [id number] Sodium Chloride (Nss 1000ml) 1,000 mls @ 999 mls/hr IV .Q1H1M SHANIA Stop: 05/08/20 23:19 Last Infusion: 05/08/20 23:30 Dose: 0 mls/hr Documented by: [id number] Admin: 05/08/20 22:28 Dose: 999 mls/hr Documented by: [id number] Ioversol (Optiray 320 125ml) 125 ml IV ONCE ONE Stop: 05/08/20 23:51 Last Admin: 05/08/20 23:51 Dose: 118 ml Documented by: [id number] Discharge Plan Visit Data Chief Complaint: Illness Stated Complaint: SOB,FEVER,COUGH,FATIGUED,WEAK +COVID ED Provider: Ulises Sommers Discharge Problem: Pneumonia due to COVID-19 virus, Hypoxia, Long-term current use of apremilast, History of breast cancer, Use of tamoxifen (Nolvadex) Patient Disposition: Admitted As Inpatient Discharge Instructions Interventions: ED Discharge Assessment Last Done: 05/09/20 02:54
[2020-05-09] MEDS ORDERED: ONDANSETRON INJ 2 MG/ML 2 ML VIAL IV PRN (03:28)
[2020-05-09] MEDS ORDERED: ACETAMINOPHEN 325 MG TAB PO PRN (03:28)
[2020-05-09] MEDS ORDERED: ALBUTEROL HFA 8 GM INHALER INH PRN (03:28)
[2020-05-09] MEDS ORDERED: MECLIZINE HCL 25 MG TAB PO PRN (03:51)
--- NOTE | 2020-05-09 04:33 | History and Physical Report ---
DATE OF ADMISSION: 05/09/2020 CHIEF COMPLAINT: Shortness of breath, recent COVID positive. HISTORY OF PRESENT ILLNESS: This is a 65-year-old female with past medical history significant for hyperlipidemia, allergic rhinitis, chronic rhinitis, GERD, history of psoriasis, psoriatic arthropathy, history of sensorineural hearing loss, bilateral fibromyalgia, generalized osteoarthritis, history of malignant neoplasm of the female breast, depression, history of tobacco abuse, who lives with her daughter and and grand kid comes because of shortness of breath on exertion and not feeling well,and dizziness. The patient was diagnosed on 04/30/2020 with COVID positive. They think the whole family got infected mostly from her granddaughter who goes to the high school. She was having fever of 102F and today she was feeling dizzy and shortness of breath on exertion which prompted her to come to the ER. In the ER when she came in, she was tachycardic and she was 90% on room air and on ambulation her oxygen saturation dropped to 89%. She was placed on 2 liters. Currently resting comfortably and saturating fine and hemodynamically stable. WBC 3.3, d-dimer was 1350. Lactate 1.9. Procalcitonin less than 0.05. D-dimer was elevated, so CTA of the chest was done which shows no PE, but shows patchy bilateral ground-glass and mildly consolidative opacities mainly in the subpleural location concerning for pneumonia, suspicious for COVID-19 pneumonia. The patient has some headache, some dizziness. Denies any blurred vision, no earache. No runny nose, but had some sore throat that got resolved. She lost sense of smell or taste. Appetite is okay, but because of loss of taste she could not eat much. Denies any chest pain. Has cough, bringing up some whitish yellow phlegm. No nausea, no vomiting, no abdominal pain, no diarrhea, no constipation, no blood in the stool or black stools. Normal bladder movements. No swelling in the legs, no rash. ALLERGIES: DOXYCYCLINE, SULFA, BACTRIM, CLARITHROMYCIN, CODEINE, TETRACYCLINE. PAST MEDICAL HISTORY: As mentioned above. PAST SURGICAL HISTORY: Right breast core biopsy, bilateral mastectomy, colonoscopy, drainage of left ovarian cyst, drainage of the left salivary gland abscess, EGDs, lasering of cataract surgery, left knee meniscus repair. MEDICATIONS: The patient is on Otezla 30 mg p.o. b.i.d., cetirizine 10 mg p.o. daily, meclizine 25 mg p.o. t.i.d. p.r.n., , omeprazole 20 mg p.o. a.m., pravastatin 40 mg at bedtime, tamoxifen 20 mg p.o. at bedtime, venlafaxine 75 mg p.o. a.m. FAMILY HISTORY: Significant for father has diabetes, heart disorder, [place] in his 40s. Mother has glaucoma, osteoporosis. Maternal grandmother had stroke. Uncle of [place] in 30s. SOCIAL HISTORY: , lives with her daughter and and grandkids. Former smoker, quit in 2008, smoked for 32 years. Alcohol occasional. No drug use. REVIEW OF SYMPTOMS: As per HPI. Rest of review of symptoms negative. PHYSICAL EXAMINATION: GENERAL: The patient is of moderate build, not in acute distress. VITAL SIGNS: Temperature 37.4, pulse 70, respiratory rate 16, blood pressure 100/60, oxygen when she came in was 90% on room air, currently 96% on 2 liters. HEENT: Pupils equal, round, reactive to light. Oral mucosa moist. NECK: No JVD, no neck masses seen. CARDIOVASCULAR: S1, S2 heard, regular rate and rhythm, no murmur, no gallop. RESPIRATORY SYSTEM: Normal AP diameter. No accessory muscle use. No wheezing, no crackles. ABDOMEN: Soft, bowel sounds present, nontender. No distention. CENTRAL NERVOUS SYSTEM: Cranial nerves II through XII grossly intact, nonfocal. EXTREMITIES: No edema, no erythema. LABORATORY DATA: WBC 3.3, hemoglobin 13.8, hematocrit 41.1, platelets 146. PT 10.8, INR 1, APTT 31.1. D-dimer 1350. Venous blood gas, pH of 7.3, pCO2 of 46, pO2 of 31, bicarbonate 26. Sodium 136, potassium 3.5, chloride 104, bicarbonate 25, BUN 13, creatinine 0.7, serum glucose 174, lactate 1.9, calcium 7.9, phosphorus 2.2, magnesium 1.8, total bilirubin 0.3, direct bilirubin less than 0.1, AST 25, ALT 27, alkaline phosphatase 76. Troponin I less than 0.015. Procalcitonin less than 0.05. IMAGING: Chest x-ray, no acute infiltrates seen. CTA of chest shows patchy bilateral ground-glass and mildly consolidative opacities mainly in the subpleural location concerning for pneumonia, suspicious for COVID-19 pneumonia. EKG: Normal sinus rhythm, rate of 94, nonspecific T-wave abnormality, no acute ST changes seen. ASSESSMENT AND PLAN: This is a 65-year-old female who recently diagnosed with COVID about a week ago, presents with shortness of breath in exertion and tachycardia. 1. COVID-19 pneumonia, diagnosed on 04/30/2020. Tachycardia, dyspnea on exertion and she was saturating 89-90% while ambulating in the ER and tachycardia improved once oxygenation improved. She received a dose of dexamethasone. We will give remdesivir 1 dose tonight and further dose as per pulmonary in the a.m. Supportive care. Closely monitor in med/tele. The patient has comorbid conditions of breast cancer, psoriasis, psoriatic arthropathy. 2. History of breast cancer, s/p bilateral mastectomy about a year ago.on tamoxifen. 3. History of hyperlipidemia on statin. 4. History of gastroesophageal reflux disease: On omeprazole. 5. Depression: On venlafaxine. 6. Hx of psoriasis and psoriasis arthropathy currently on Otezla and celecoxib as per patient. 7. Deep venous thrombosis prophylaxis: Lovenox. DISPOSITION: Closely monitor in the med tele. Level 1 full code. Expect discharge home and follow with family doctor. LANRED
[2020-05-09] MEDS ORDERED: REMDESIVIR 200 mg: Day 1 IV ONE (06:00)
--- NOTE | 2020-05-09 07:30 | XRay Report ---
SINGLE VIEW CHEST CLINICAL HISTORY: Sepsis. FINDINGS: An AP, portable, upright chest radiograph is compared to study dated 03/14/2020 and correlate d with chest CT dated 08/21/2018. The cardiomediastinal silhouette is unremarkable. There are low lung volumes with bibasilar atelectasis. No airspace consolidation or large pleural effusion is identifie d. Increased density at the lung bases is related to overlying soft tissue. No pneumothorax is seen. The skeletal structures are osteopenic. The bony thorax is grossly intact. Surgical clips are noted i n the left axilla. IMPRESSION: No acute cardiopulmonary abnormality. ACT 112: Negative or not required by law. Electronically signed by: Kendall Daniel M.D. 05/09/2020 7:28 AM
[2020-05-09 07:41] LABS: Basophils # (auto) 0.01 K/uL (0-0.2); Basophils % (auto) 0.5 %; Hematocrit (blood only) 38.7 % (37-47); Hemoglobin 12.9 g/dL (12.0-16.0); Immature Granulocytes # (auto) 0.01 K/uL (0.00-0.02); Immature Granulocytes % (auto) 0.5 %; Lymphocytes # (auto) 0.61 K/uL (1.2-3.4); Lymphocytes % (auto) 28.2 %; Mean Corpuscular Hemoglobin 32.7 pg (25-34); Mean Corpuscular Hgb Conc 33.3 g/dL (32-36); Mean Corpuscular Volume 98.2 fL (80-100); Mean Platelet Volume 10.2 fL (7.4-10.4); Monocytes # (auto) 0.09 K/uL (0.11-0.59); Monocytes % (auto) 4.2 %; Neutrophils # (auto) 1.44 K/uL (1.4-6.5); Neutrophils % (auto) 66.6 %; Platelet Count 130 K/uL (130-400); RDW Coefficient of Variation 12.1 % (11.5-14.5); RDW Standard Deviation 43.6 fL (36.4-46.3); Red Blood Count 3.94 M/uL (4.2-5.4); White Blood Count 2.16 K/uL (4.8-10.8)
[2020-05-09] MEDS: ENOXAPARIN INJ 40 MG/0.4 ML SYR SQ SCH (07:48)
[2020-05-09] MEDS: VENLAFAXINE HCL XR 75 MG CAPXR PO SCH (07:48)
[2020-05-09] MEDS: PANTOprazole 40 MG TAB PO SCH (07:48)
[2020-05-09] MEDS: OTEZLA~ORDER AWAITING ACTION SCH ×3 (07:48→23:17)
[2020-05-09] MEDS: CETIRIZINE HCL 10 MG TABLET PO SCH (07:48)
[2020-05-09] MEDS: NSS 30mL Flush, Days 1-5 IV SCH (07:49)
--- NOTE | 2020-05-09 07:55 | Electrocardiogram Report ---
Test Reason : Blood Pressure : / mmHG Vent. Rate : 094 BPM Atrial Rate : 094 BPM P-R Int : 162 ms QRS Dur : 090 ms QT Int : 346 ms P-R-T Axes : 058 027 055 degrees QTc Int : 432 ms Normal sinus rhythm Normal ECG When compared with ECG of 14-MAR-2020 11:29, Vent. rate has increased BY 34 BPM No significant change Confirmed by Agus Mckinney ([id number]) on 05/09/2020 7:55:06 AM Referred By: Ghassan Ferrara Confirmed By:Agus Mckinney
[2020-05-09 08:09] LABS: D Dimer 1010 ug/L FEU (0-500)
[2020-05-09 08:27] LABS: Alanine Aminotransferase 25 U/L (12-78); Albumin Level 2.3 gm/dl (3.4-5.0); Alkaline Phosphatase 68 U/L (45-117); Aspartate Aminotransferase 25 U/L (15-37); Bilirubin Direct < 0.1 mg/dl (0-0.2); Bilirubin,Total 0.2 mg/dl (0.2-1); Total Protein 6.3 gm/dl (6.4-8.2)
--- NOTE | 2020-05-09 08:32 | CT Scan Report ---
CHEST CTA for PULMONARY ARTERIES CT DOSE: 443.18 mGycm HISTORY: Positive coronavirus. Cough. Assess for pulmonary embolus. TECHNIQUE: Multiaxial CT images of the chest were performed following the intravenous administration of contrast to evaluate the pulmonary arteries. Maximal intensity projection images were also obtaine d. A dose lowering technique was utilized adhering to the principles of ALARA. COMPARISON STUDY: Chest CT 08/21/2018. FINDINGS: No pneumothorax. No pleural effusions. There are few scattered small peripheral groundglass airspace opacities consistent with an atypical pneumonia likely secondary to the patient's known cor onavirus. No suspicious lytic or blastic osseous lesions. The left thyroid gland is surgically absent . No significant mediastinal or hilar lymphadenopathy. Normal caliber esophagus. Hepatic steatosis. B ilateral breast implants are noted. No suspicious lytic or blastic osseous lesions. Normal caliber th oracic aorta with no evidence for dissection. The heart is normal in size. No filling defects within the pulmonary arteries to suggest pulmonary embolus. IMPRESSION: 1. No evidence for pulmonary embolus. 2. A few scattered small peripheral groundglass airspace opacities consistent with an atypical pneumo pavel likely secondary to the patient's known coronavirus. 3. Hepatic steatosis. ACT 112: Negative or not required by law. Electronically signed by: Joel Sylvester M.D. 05/09/2020 8:30 AM
[2020-05-09 08:37] LABS: BUN Creatinine Ratio 15.7 (10-20); Creatinine Clr Calc Pharmacy 83.3 ml/min; Est GFR (African American) 106.2; Est GFR (Non-African American) 91.6; Magnesium 2.2 mg/dl (1.8-2.4); Phosphorus 2.7 mg/dl (2.5-4.9); Potassium 4.4 mmol/L (3.5-5.1)
--- NOTE | 2020-05-09 14:48 | Hospitalist Progress Note ---
Date of Service May 09, 2020 Assessment & Plan (1) Pneumonia due to COVID-19 virus: Currently on 2l/min of nasal oxygen Continue oxygen supplementation Continue dexamethasone Discussed with pulm Dr Scott about Remdesivir. Approved to continue therapy Educated patient on prone positioning as tolerated Monitor LFT and renal function CT PE was negative for PE, showed small ground glass opacities Continue lovenox for DVT ppx (2) History of breast cancer: s/p mastectomy bilateral On tamoxifen (3) Depression: Stable On venlafaxine (4) GERD (gastroesophageal reflux disease): Stable Continue PPI Admission and Anticipated Discharge Date Admission Date: May 09, 2020 Subjective Patient seen and examined Reports cough and exertional dyspnea Denied any chest pain, palpitations Denied anorexia, abd pain, nausea, vomiting, diarrhea Denied dysuria, freq, urgency Physical Exam Constitutional: + well hydrated; no acute distress Eyes: PERRL, conjunctivae normal, anicteric sclerae ENMT: external ear and nose normal, oropharynx normal Respiratory: normal respiratory effort, lungs clear to auscultation Cardiovascular: RRR, no murmur, no edema Gastrointestinal (Abdomen): normal bowel sounds, soft, nontender, no hepatosplenomegaly Musculoskeletal: no cyanosis or clubbing, extremities motor strength 5/5 Neurologic: PERRL, EOMI, accommodation nl, no face palsy, no dysarthria Psychiatric: A+Ox3, euthymic affect Results & Data Results & Data ([facility]) Vital Signs (Past 12 Hours) Vital Signs Temp Pulse Pulse Resp BP BP Pulse Ox 05/09/20 09:00 78 21 96 05/09/20 08:20 71 21 128/62 95 05/09/20 08:00 36.4 C L 79 15 94 05/09/20 07:20 72 19 109/60 92 05/09/20 07:00 37.2 C 70 17 93 05/09/20 03:28 37.7 C H 77 23 129/73 93 05/09/20 03:00 37.7 C H 74 23 129/73 93 Pulse Ox 05/09/20 09:00 05/09/20 08:20 05/09/20 08:00 96 05/09/20 07:20 05/09/20 07:00 05/09/20 03:28 05/09/20 03:00 Laboratory Results Laboratory Results - last 24 hr 05/08/20 05/08/20 05/08/20 22:32 22:32 22:32 WBC 3.34 L RBC 4.19 L Hgb 13.8 Hct 41.1 MCV 98.1 MCH 32.9 MCHC 33.6 RDW Std Deviation 43.7 RDW Coeff of Suzanne 12.2 Plt Count 146 MPV 10.0 Immature Gran % (Auto) 0.0 Neut % (Auto) 58.7 Lymph % (Auto) 29.3 [place] % (Auto) 12.0 Eos % (Auto) 0.0 Baso % (Auto) 0.0 Neut # (Auto) 1.96 Lymph # (Auto) 0.98 L [place] # (Auto) 0.40 Eos # (Auto) 0.00 Baso # (Auto) 0.00 Immature Gran # (Auto) 0.00 PT 10.8 INR 1.0 APTT 31.1 H PTT Ratio 1.1 D-Dimer 1350 H* VBG pH VBG pCO2 VBG pO2 VBG HCO3 VBG O2 Saturation VBG Base Excess Barometric Pressure Sodium 136 Potassium 3.5 Chloride 104 Carbon Dioxide 25 Anion Gap 7.0 BUN 13 Creatinine 0.75 Est Cr Clr Drug Dosing 74.4 Est GFR ( Amer) 96.3 Est GFR (Non-Af Amer) 83.1 BUN/Creatinine Ratio 17.2 Glucose 174 H Lactate Calcium 7.9 L Phosphorus 2.2 L Magnesium 1.8 Total Bilirubin 0.3 Direct Bilirubin < 0.1 AST 25 ALT 27 Alkaline Phosphatase 76 Troponin I < 0.015 Total Protein 6.8 Albumin 2.6 L Globulin 4.2 H Albumin/Globulin Ratio 0.6 L Procalcitonin Nasal Screen MRSA (PCR) 05/08/20 05/08/20 05/08/20 22:32 22:32 22:58 WBC RBC Hgb Hct MCV MCH MCHC RDW Std Deviation RDW Coeff of Suzanne Plt Count MPV Immature Gran % (Auto) Neut % (Auto) Lymph % (Auto) [place] % (Auto) Eos % (Auto) Baso % (Auto) Neut # (Auto) Lymph # (Auto) [place] # (Auto) Eos # (Auto) Baso # (Auto) Immature Gran # (Auto) PT INR APTT PTT Ratio D-Dimer VBG pH 7.37 VBG pCO2 46 VBG pO2 31 VBG HCO3 26 VBG O2 Saturation < 60.0 VBG Base Excess 0.3 Barometric Pressure 732.6 Sodium Potassium Chloride Carbon Dioxide Anion Gap BUN Creatinine Est Cr Clr Drug Dosing Est GFR ( Amer) Est GFR (Non-Af Amer) BUN/Creatinine Ratio Glucose Lactate 1.9 Calcium Phosphorus Magnesium Total Bilirubin Direct Bilirubin AST ALT Alkaline Phosphatase Troponin I Total Protein Albumin Globulin Albumin/Globulin Ratio Procalcitonin < 0.05 Nasal Screen MRSA (PCR) 05/09/20 05/09/20 05/09/20 03:20 06:55 06:55 WBC RBC Hgb Hct MCV MCH MCHC RDW Std Deviation RDW Coeff of Suzanne Plt Count MPV Immature Gran % (Auto) Neut % (Auto) Lymph % (Auto) [place] % (Auto) Eos % (Auto) Baso % (Auto) Neut # (Auto) Lymph # (Auto) [place] # (Auto) Eos # (Auto) Baso # (Auto) Immature Gran # (Auto) PT INR APTT PTT Ratio D-Dimer 1010 H* VBG pH VBG pCO2 VBG pO2 VBG HCO3 VBG O2 Saturation VBG Base Excess Barometric Pressure Sodium Potassium Chloride Carbon Dioxide Anion Gap BUN Creatinine Est Cr Clr Drug Dosing Est GFR ( Amer) Est GFR (Non-Af Amer) BUN/Creatinine Ratio Glucose Lactate Calcium Phosphorus Magnesium Total Bilirubin 0.2 Direct Bilirubin < 0.1 AST 25 ALT 25 Alkaline Phosphatase 68 Troponin I Total Protein 6.3 L Albumin 2.3 L Globulin Albumin/Globulin Ratio Procalcitonin Nasal Screen MRSA (PCR) Negative 05/09/20 05/09/20 06:55 06:55 WBC 2.16 L RBC 3.94 L Hgb 12.9 Hct 38.7 MCV 98.2 MCH 32.7 MCHC 33.3 RDW Std Deviation 43.6 RDW Coeff of Suzanne 12.1 Plt Count 130 MPV 10.2 Immature Gran % (Auto) 0.5 Neut % (Auto) 66.6 Lymph % (Auto) 28.2 [place] % (Auto) 4.2 Eos % (Auto) 0.0 Baso % (Auto) 0.5 Neut # (Auto) 1.44 Lymph # (Auto) 0.61 L [place] # (Auto) 0.09 L Eos # (Auto) 0.00 Baso # (Auto) 0.01 Immature Gran # (Auto) 0.01 PT INR APTT PTT Ratio D-Dimer VBG pH VBG pCO2 VBG pO2 VBG HCO3 VBG O2 Saturation VBG Base Excess Barometric Pressure Sodium 142 Potassium 4.4 D Chloride 110 H Carbon Dioxide 27 Anion Gap 5.0 BUN 11 Creatinine 0.67 Est Cr Clr Drug Dosing 83.3 Est GFR ( Amer) 106.2 Est GFR (Non-Af Amer) 91.6 BUN/Creatinine Ratio 15.7 Glucose 214 H Lactate Calcium 8.0 L Phosphorus 2.7 Magnesium 2.2 Total Bilirubin Direct Bilirubin AST ALT Alkaline Phosphatase Troponin I Total Protein Albumin Globulin Albumin/Globulin Ratio Procalcitonin Nasal Screen MRSA (PCR)
[2020-05-09] MEDS: dexAMETHasone 1 MG TAB PO SCH (21:13)
[2020-05-09] MEDS: PRAVASTATIN SOD 40 MG TAB PO SCH (21:13)
[2020-05-09] MEDS: TAMOXIFEN CITRATE 10 MG TABLET PO SCH (21:28)
[2020-05-10] MEDS: REMDESIVIR 100mg: Days 2-5 IV SCH (05:51)
[2020-05-10 06:01] LABS: Hematocrit (blood only) 39.4 % (37-47); Hemoglobin 13.2 g/dL (12.0-16.0); Mean Corpuscular Hemoglobin 32.8 pg (25-34); Mean Corpuscular Hgb Conc 33.5 g/dL (32-36); Mean Platelet Volume 10.2 fL (7.4-10.4); Platelet Count 142 K/uL (130-400); RDW Standard Deviation 42.8 fL (36.4-46.3); Red Blood Count 4.02 M/uL (4.2-5.4); White Blood Count 4.98 K/uL (4.8-10.8)
[2020-05-10 06:41] LABS: Albumin Level 2.6 gm/dl (3.4-5.0); Calcium 8.4 mg/dl (8.5-10.1); Creatinine Clr Calc Pharmacy 72.5 ml/min; Est GFR (African American) 93.3; Est GFR (Non-African American) 80.5
[2020-05-10 06:42] LABS: Albumin Globulin Ratio 0.7 (0.9-2); Bilirubin,Total 0.4 mg/dl (0.2-1); Total Protein 6.6 gm/dl (6.4-8.2)
[2020-05-10] MEDS: NSS 30mL Flush, Days 1-5 IV SCH (07:11)
[2020-05-10] MEDS: OTEZLA~ORDER AWAITING ACTION SCH (07:29)
[2020-05-10 08:16] LABS: Potassium 4.1 mmol/L (3.5-5.1)
[2020-05-10] MEDS: PANTOprazole 40 MG TAB PO SCH (09:33)
[2020-05-10] MEDS: VENLAFAXINE HCL XR 75 MG CAPXR PO SCH (09:33)
[2020-05-10] MEDS: CETIRIZINE HCL 10 MG TABLET PO SCH (09:33)
[2020-05-10] MEDS: dexAMETHasone 1 MG TAB PO SCH (09:33)
[2020-05-10] MEDS: ENOXAPARIN INJ 40 MG/0.4 ML SYR SQ SCH (09:33)
--- NOTE | 2020-05-10 13:59 | Hospitalist Progress Note ---
Date of Service May 10, 2020 Assessment & Plan (1) Pneumonia due to COVID-19 virus: Currently on 2l/min of nasal oxygen Continue oxygen supplementation and wean as tolerated Continue dexamethasone and remdesivir Guaifenesin prn cough Monitor LFT and renal function CT PE was negative for PE, showed small ground glass opacities Continue lovenox for DVT ppx (2) History of breast cancer: s/p mastectomy bilateral On tamoxifen (3) Depression: Stable On venlafaxine (4) GERD (gastroesophageal reflux disease): Stable Continue PPI Admission and Anticipated Discharge Date Admission Date: May 09, 2020 Subjective Patient seen and examined Reports coughing bouts and exertional dyspnea Denied any chest pain, palpitation Denied any abd pain, nausea, vomiting, constipation, diarrhea Denied dysuria, freq, urgency Currently on 2l/min nasal oxygen Physical Exam Constitutional: + well hydrated; no acute distress Eyes: PERRL, conjunctivae normal, anicteric sclerae ENMT: external ear and nose normal, oropharynx normal Respiratory: normal respiratory effort, lungs clear to auscultation Cardiovascular: RRR, no murmur, no edema Gastrointestinal (Abdomen): normal bowel sounds, soft, nontender, no hepatosplenomegaly Musculoskeletal: no cyanosis or clubbing, extremities motor strength 5/5 Neurologic: PERRL, EOMI, accommodation nl, no face palsy, no dysarthria Psychiatric: A+Ox3, euthymic affect Results & Data Results & Data ([facility]) Vital Signs (Past 12 Hours) Vital Signs Temp Pulse Pulse Resp BP Pulse Ox 05/10/20 11:18 37.1 C 74 18 113/66 97 05/10/20 09:05 65 05/10/20 07:13 36.6 C 76 14 106/69 94 05/10/20 04:27 36.7 C 78 16 123/80 94 05/10/20 02:16 72 Laboratory Results Laboratory Results - last 24 hr 05/10/20 05/10/20 05/10/20 05:30 05:30 07:28 WBC 4.98 RBC 4.02 L Hgb 13.2 Hct 39.4 MCV 98.0 MCH 32.8 MCHC 33.5 RDW Std Deviation 42.8 RDW Coeff of Suzanne 12.0 Plt Count 142 MPV 10.2 Sodium 141 Potassium 4.1 Chloride 109 H Carbon Dioxide 29 Anion Gap 3.0 BUN 15 Creatinine 0.77 Est Cr Clr Drug Dosing 72.5 Est GFR ( Amer) 93.3 Est GFR (Non-Af Amer) 80.5 BUN/Creatinine Ratio 19.0 Glucose 202 H Calcium 8.4 L Total Bilirubin 0.4 AST 21 ALT 26 Alkaline Phosphatase 69 Total Protein 6.6 Albumin 2.6 L Globulin 4.0 Albumin/Globulin Ratio 0.7 L
[2020-05-10] MEDS ORDERED: guaiFENesin SUGAR FREE 200 MG/10 ML UDC PO PRN (14:00)
[2020-05-10] MEDS: cefTRIAXone SODIUM 1,000 MG in DEXTROSE 5% 50 ML IV SCH (21:00)
[2020-05-10] MEDS: PRAVASTATIN SOD 40 MG TAB PO SCH (21:03)
[2020-05-10] MEDS: TAMOXIFEN CITRATE 10 MG TABLET PO SCH (21:30)
[2020-05-11 05:26] LABS: Hematocrit (blood only) 38.4 % (37-47); Mean Corpuscular Hgb Conc 33.9 g/dL (32-36); Mean Corpuscular Volume 97.5 fL (80-100); Mean Platelet Volume 10.7 fL (7.4-10.4); Platelet Count 163 K/uL (130-400); RDW Coefficient of Variation 11.8 % (11.5-14.5); RDW Standard Deviation 42.2 fL (36.4-46.3); Red Blood Count 3.94 M/uL (4.2-5.4); White Blood Count 6.08 K/uL (4.8-10.8)
[2020-05-11 05:51] LABS: Albumin Level 2.6 gm/dl (3.4-5.0); BUN Creatinine Ratio 22.2 (10-20); Calcium 8.3 mg/dl (8.5-10.1); Creatinine Clr Calc Pharmacy 85.9 ml/min; Est GFR (African American) 107.2; Est GFR (Non-African American) 92.5; Magnesium 2.3 mg/dl (1.8-2.4); Potassium 4.1 mmol/L (3.5-5.1)
[2020-05-11 05:54] LABS: Albumin Globulin Ratio 0.7 (0.9-2); Bilirubin,Total 0.2 mg/dl (0.2-1); Globulin 3.9 gm/dl (2.5-4.0); Total Protein 6.5 gm/dl (6.4-8.2)
[2020-05-11 06:11] LABS: D Dimer 650 ug/L FEU (0-500)
[2020-05-11] MEDS: REMDESIVIR 100mg: Days 2-5 IV SCH (06:15)
[2020-05-11] MEDS: NSS 30mL Flush, Days 1-5 IV SCH (07:29)
[2020-05-11] MEDS: CETIRIZINE HCL 10 MG TABLET PO SCH (08:04)
[2020-05-11] MEDS: ENOXAPARIN INJ 40 MG/0.4 ML SYR SQ SCH (08:04)
[2020-05-11] MEDS: VENLAFAXINE HCL XR 75 MG CAPXR PO SCH (08:04)
[2020-05-11] MEDS: PANTOprazole 40 MG TAB PO SCH (08:04)
[2020-05-11] MEDS: dexAMETHasone 1 MG TAB PO SCH (08:04)
--- NOTE | 2020-05-11 18:22 | Hospitalist Progress Note ---
Date of Service May 11, 2020 Assessment & Plan (1) Pneumonia due to COVID-19 virus: Currently on room air or 2l/min of nasal oxygen Continue oxygen supplementation and wean as tolerated Continue dexamethasone and remdesivir Guaifenesin prn cough Ceftriaxone Monitor LFTs and renal function CT PE was negative for PE, showed small ground glass opacities Continue lovenox for DVT ppx (2) History of breast cancer: s/p mastectomy bilateral On tamoxifen (3) Depression: Stable On venlafaxine (4) GERD (gastroesophageal reflux disease): Stable Continue PPI Admission and Anticipated Discharge Date Admission Date: May 09, 2020 Subjective Sitting up in bed in NAD. Currently eating dinner. Complains of burning with urination. Shortness of breath and cough improved but continues to cough. No fever, chills. Has some chest discomfort with cough. Review of Systems Review of Systems: All systems reviewed & are unremarkable except as noted in HPI & below Constitutional: no fever and no chills Respiratory: + cough (improved) and + dyspnea (improved) Cardiovascular: no chest pain, no palpitations and no edema Gastrointestinal: no abdominal pain, no nausea and no vomiting Genitourinary: + dysuria Physical Exam Physical Exam: Constitutional: + well hydrated; no acute distress Eyes: PERRL, EOMI, conjunctivae normal, anicteric sclerae ENMT: external ear and nose normal, oropharynx normal Respiratory: normal respiratory effort, lungs clear to auscultation Cardiovascular: RRR, no murmur, no edema Gastrointestinal (Abdomen): normal bowel sounds, soft, nontender Musculoskeletal: no cyanosis or clubbing, extremities motor strength 5/5 Neurologic: PERRL, EOMI, no face palsy, no dysarthria, moves extremities spontaneously Psychiatric: A+Ox3, euthymic affect Results & Data Results & Data ([facility]) Vital Signs (Past 12 Hours) Vital Signs Temp Pulse Pulse Resp BP Pulse Ox 05/11/20 18:12 36.6 C 79 129/70 93 05/11/20 15:46 37.0 C 72 123/70 90 05/11/20 12:17 37.0 C 81 16 123/69 92 05/11/20 07:32 95 05/11/20 07:30 36.7 C 60 65 16 125/75 95 Laboratory Results 05/11/20 05/11/20 05/11/20 Range/Units Unknown 05:03 05:03 WBC 6.08 (4.8-10.8) K/uL RBC 3.94 L (4.2-5.4) M/uL Hgb 13.0 (12.0-16.0) g/dL Hct 38.4 (37-47) % MCV 97.5 (80-100) fL MCH 33.0 (25-34) pg MCHC 33.9 (32-36) g/dL RDW Std Deviation 42.2 (36.4-46.3) fL RDW Coeff of Suzanne 11.8 (11.5-14.5) % Plt Count 163 (130-400) K/uL MPV 10.7 H (7.4-10.4) fL D-Dimer 650 H* (0-500) ug/L FEU Sodium (136-145) mmol/L Potassium (3.5-5.1) mmol/L Chloride (98-107) mmol/L Carbon Dioxide (21-32) mmol/L Anion Gap (3-11) BUN (7-18) mg/dl Creatinine (0.6-1.2) mg/dl Est Cr Clr Drug Dosing ml/min Est GFR ( Amer) Est GFR (Non-Af Amer) BUN/Creatinine Ratio (10-20) Glucose (70-99) mg/dl Calcium (8.5-10.1) mg/dl Magnesium (1.8-2.4) mg/dl Total Bilirubin (0.2-1) mg/dl AST (15-37) U/L ALT (12-78) U/L Alkaline Phosphatase (45-117) U/L Total Protein (6.4-8.2) gm/dl Albumin (3.4-5.0) gm/dl Globulin (2.5-4.0) gm/dl Albumin/Globulin Ratio (0.9-2) Urine Color Pending Urine Appearance Pending Urine pH Pending Ur Specific [place] Pending Urine Protein Pending Urine Glucose (UA) Pending Urine Ketones Pending Urine Blood Pending Urine Nitrite Pending Urine Bilirubin Pending Urine Urobilinogen Pending Ur Leukocyte Esterase Pending 05/11/20 Range/Units 05:03 WBC (4.8-10.8) K/uL RBC (4.2-5.4) M/uL Hgb (12.0-16.0) g/dL Hct (37-47) % MCV (80-100) fL MCH (25-34) pg MCHC (32-36) g/dL RDW Std Deviation (36.4-46.3) fL RDW Coeff of Suzanne (11.5-14.5) % Plt Count (130-400) K/uL MPV (7.4-10.4) fL D-Dimer (0-500) ug/L FEU Sodium 142 (136-145) mmol/L Potassium 4.1 (3.5-5.1) mmol/L Chloride 108 H (98-107) mmol/L Carbon Dioxide 30 (21-32) mmol/L Anion Gap 4.0 (3-11) BUN 14 (7-18) mg/dl Creatinine 0.65 (0.6-1.2) mg/dl Est Cr Clr Drug Dosing 85.9 ml/min Est GFR ( Amer) 107.2 Est GFR (Non-Af Amer) 92.5 BUN/Creatinine Ratio 22.2 H (10-20) Glucose 136 H (70-99) mg/dl Calcium 8.3 L (8.5-10.1) mg/dl Magnesium 2.3 (1.8-2.4) mg/dl Total Bilirubin 0.2 (0.2-1) mg/dl AST 15 (15-37) U/L ALT 25 (12-78) U/L Alkaline Phosphatase 67 (45-117) U/L Total Protein 6.5 (6.4-8.2) gm/dl Albumin 2.6 L (3.4-5.0) gm/dl Globulin 3.9 (2.5-4.0) gm/dl Albumin/Globulin Ratio 0.7 L (0.9-2) Urine Color Urine Appearance Urine pH Ur Specific [place] Urine Protein Urine Glucose (UA) Urine Ketones Urine Blood Urine Nitrite Urine Bilirubin Urine Urobilinogen Ur Leukocyte Esterase Medications Administered Current Inpatient Medications Acetaminophen (Acetaminophen 325 Mg Tab) 650 mg PO Q4H PRN PRN Reason: Pain or Fever Stop: 06/08/20 03:27 Albuterol (Albuterol Hfa 8 Gm Inhaler) 2 puffs INH Q4H PRN PRN Reason: Shortness Of Breath Or Wheezing Stop: 06/08/20 03:27 Cetirizine HCl (Cetirizine Hcl 10 Mg Tablet) 10 mg PO QAM SHANIA Stop: 06/08/20 08:59 Last Admin: 05/11/20 08:04 Dose: 10 mg Documented by: Dexamethasone (Dexamethasone 1 Mg Tab) 6 mg PO DAILY SHANIA Stop: 06/08/20 20:59 Last Admin: 05/11/20 08:04 Dose: 6 mg Documented by: Enoxaparin Sodium (Enoxaparin Inj 40 Mg/0.4 Ml Syr) 40 mg SQ Q24H SHANIA Stop: 06/08/20 08:59 Last Admin: 05/11/20 08:04 Dose: 40 mg Documented by: Guaifenesin (Guaifenesin Sugar Free 200 Mg/10 Ml Udc) 200 mg PO Q6H PRN PRN Reason: Cough Stop: 06/09/20 13:59 Remdesivir 100 mg/ Sodium (Chloride) 250 mls @ 250 mls/hr IV Q24H [facility]; Protocol Stop: 05/13/20 06:59 Last Infusion: 05/11/20 07:29 Dose: Infused Documented by: Ceftriaxone Sodium 1,000 mg/ (Dextrose) 60 mls @ 100 mls/hr IV Q24H [facility]; Protocol Stop: 05/17/20 19:59 Last Infusion: 05/10/20 22:36 Dose: Infused Documented by: Meclizine HCl (Meclizine Hcl 25 Mg Tab) 25 mg PO TID PRN PRN Reason: dizziness Stop: 06/08/20 03:50 Ondansetron HCl (Ondansetron Inj 2 Mg/Ml 2 Ml Vial) 4 mg IV Q6H PRN PRN Reason: Nausea Stop: 06/08/20 03:27 Pantoprazole Sodium (Pantoprazole 40 Mg Tab) 40 mg PO QAM SHANIA Stop: 06/08/20 08:59 Last Admin: 05/11/20 08:04 Dose: 40 mg Documented by: Pravastatin Sodium (Pravastatin Sod 40 Mg Tab) 40 mg PO HS [facility] Stop: 06/08/20 20:59 Last Admin: 05/10/20 21:03 Dose: 40 mg Documented by: Sodium Chloride (Nss 30ml Flush, Days 1-5) 30 ml IV Q24H SHANIA Stop: 05/13/20 06:01 Last Admin: 05/11/20 07:29 Dose: 30 ml Documented by: Tamoxifen Citrate (Tamoxifen Citrate 10 Mg Tablet) 20 mg PO HS SHANIA Stop: 06/08/20 20:59 Last Admin: 05/10/20 21:30 Dose: 20 mg Documented by: Venlafaxine HCl (Venlafaxine Hcl Xr 75 Mg Capxr) 75 mg PO QAM SHANIA Stop: 06/08/20 08:59 Last Admin: 05/11/20 08:04 Dose: 75 mg Documented by:
[2020-05-11 18:26] LABS: Appearance Urine Clear (Clear); Bilirubin Urine Negative (Negative); Blood Urine Negative (Negative); Color Urine Yellow; Glucose Urine UA 2+ (Negative); Ketones Urine Negative (Negative); Leukocyte Esterase Urine Negative (Negative); Nitrite Urine Negative (Negative); Protein Urine Negative (Negative); Specific Gravity Urine 1.019 (1.000-1.030); Urobilinogen Urine Negative (Negative); pH Urine 6.5 (4.5-7.5)
[2020-05-11] MEDS: PRAVASTATIN SOD 40 MG TAB PO SCH (20:41)
[2020-05-11] MEDS: cefTRIAXone SODIUM 1,000 MG in DEXTROSE 5% 50 ML IV SCH (20:41)
[2020-05-11] MEDS: TAMOXIFEN CITRATE 10 MG TABLET PO SCH (20:54)
[2020-05-12 05:36] LABS: Hemoglobin 13.2 g/dL (12.0-16.0); Mean Corpuscular Hemoglobin 32.8 pg (25-34); Mean Corpuscular Hgb Conc 33.8 g/dL (32-36); Mean Platelet Volume 10.3 fL (7.4-10.4); Platelet Count 187 K/uL (130-400); RDW Coefficient of Variation 11.9 % (11.5-14.5); RDW Standard Deviation 42.3 fL (36.4-46.3); Red Blood Count 4.02 M/uL (4.2-5.4); White Blood Count 7.69 K/uL (4.8-10.8)
[2020-05-12 06:07] LABS: Albumin Level 2.5 gm/dl (3.4-5.0); BUN Creatinine Ratio 23.9 (10-20); Calcium 8.5 mg/dl (8.5-10.1); Creatinine Clr Calc Pharmacy 84.6 ml/min; Est GFR (African American) 106.7; Est GFR (Non-African American) 92.1; Magnesium 2.3 mg/dl (1.8-2.4); Potassium 4.6 mmol/L (3.5-5.1)
[2020-05-12 06:09] LABS: Albumin Globulin Ratio 0.6 (0.9-2); Bilirubin,Total 0.3 mg/dl (0.2-1); Phosphorus 2.4 mg/dl (2.5-4.9); Total Protein 6.5 gm/dl (6.4-8.2)
[2020-05-12] MEDS: REMDESIVIR 100mg: Days 2-5 IV SCH (06:29)
[2020-05-12] MEDS: NSS 30mL Flush, Days 1-5 IV SCH (07:42)
[2020-05-12] MEDS: dexAMETHasone 1 MG TAB PO SCH (07:43)
[2020-05-12] MEDS: ENOXAPARIN INJ 40 MG/0.4 ML SYR SQ SCH (07:43)
[2020-05-12] MEDS: VENLAFAXINE HCL XR 75 MG CAPXR PO SCH (07:43)
[2020-05-12] MEDS: PANTOprazole 40 MG TAB PO SCH (07:44)
[2020-05-12] MEDS: CETIRIZINE HCL 10 MG TABLET PO SCH (07:44)
--- NOTE | 2020-05-12 09:15 | Hospitalist Progress Note ---
Date of Service May 12, 2020 Assessment & Plan (1) Pneumonia due to COVID-19 virus: Currently on room air satting 90-93% Check O2 satts with ambulation Continue oxygen supplementation and wean as tolerated Continue dexamethasone and remdesivir Guaifenesin prn cough Ceftriaxone Monitor LFTs and renal function CT PE was negative for PE, showed small ground glass opacities Continue lovenox for DVT ppx (2) History of breast cancer: s/p mastectomy bilateral On tamoxifen (3) Depression: Stable On venlafaxine (4) GERD (gastroesophageal reflux disease): Stable Continue PPI Admission and Anticipated Discharge Date Admission Date: May 09, 2020 Subjective Sitting up in bed in NAD. Currently eating dinner. Shortness of breath and cough improved but continues to cough. No fever, chills. Has some chest discomfort with cough. Currently on room air. will check O2 sats with ambulation. Review of Systems Review of Systems: All systems reviewed & are unremarkable except as noted in HPI & below Constitutional: no fever and no chills Respiratory: + cough (improved) and + dyspnea (improved) Cardiovascular: no chest pain and no palpitations Gastrointestinal: no abdominal pain, no nausea and no vomiting Physical Exam Physical Exam: Constitutional: + well hydrated; no acute distress Eyes: PERRL, EOMI, conjunctivae normal, anicteric sclerae ENMT: external ear and nose normal, oropharynx normal Respiratory: normal respiratory effort, lungs clear to auscultation Cardiovascular: RRR, no murmur, no edema Gastrointestinal (Abdomen): normal bowel sounds, soft, nontender Musculoskeletal: no cyanosis or clubbing, extremities motor strength 5/5 Neurologic: PERRL, EOMI, no face palsy, no dysarthria, moves extremities spontaneously Psychiatric: A+Ox3, euthymic affect Results & Data Results & Data ([facility]) Vital Signs (Past 12 Hours) Vital Signs Temp Pulse Pulse Resp BP Pulse Ox 05/12/20 07:45 53 L 05/12/20 07:39 36.5 C 63 16 121/72 90 05/12/20 04:41 36.9 C 59 L 18 119/70 94 05/12/20 00:54 60 05/12/20 00:04 36.8 C 63 16 126/74 92 Laboratory Results 11/05/20 11/05/20 11/04/20 Range/Units 04:58 04:58 Unknown WBC 7.69 (4.8-10.8) K/uL RBC 4.02 L (4.2-5.4) M/uL Hgb 13.2 (12.0-16.0) g/dL Hct 39.0 (37-47) % MCV 97.0 (80-100) fL MCH 32.8 (25-34) pg MCHC 33.8 (32-36) g/dL RDW Std Deviation 42.3 (36.4-46.3) fL RDW Coeff of Suzanne 11.9 (11.5-14.5) % Plt Count 187 (130-400) K/uL MPV 10.3 (7.4-10.4) fL Sodium 140 (136-145) mmol/L Potassium 4.6 (3.5-5.1) mmol/L Chloride 107 (98-107) mmol/L Carbon Dioxide 31 (21-32) mmol/L Anion Gap 2.0 L (3-11) BUN 16 (7-18) mg/dl Creatinine 0.66 (0.6-1.2) mg/dl Est Cr Clr Drug Dosing 84.6 ml/min Est GFR ( Amer) 106.7 Est GFR (Non-Af Amer) 92.1 BUN/Creatinine Ratio 23.9 H (10-20) Glucose 150 H (70-99) mg/dl Calcium 8.5 (8.5-10.1) mg/dl Phosphorus 2.4 L (2.5-4.9) mg/dl Magnesium 2.3 (1.8-2.4) mg/dl Total Bilirubin 0.3 (0.2-1) mg/dl AST 16 (15-37) U/L ALT 29 (12-78) U/L Alkaline Phosphatase 76 (45-117) U/L Total Protein 6.5 (6.4-8.2) gm/dl Albumin 2.5 L (3.4-5.0) gm/dl Globulin 4.0 (2.5-4.0) gm/dl Albumin/Globulin Ratio 0.6 L (0.9-2) Urine Color Yellow Urine Appearance Clear (Clear) Urine pH 6.5 (4.5-7.5) Ur Specific [place] 1.019 (1.000-1.030) Urine Protein Negative (Negative) Urine Glucose (UA) 2+ H (Negative) Urine Ketones Negative (Negative) Urine Blood Negative (Negative) Urine Nitrite Negative (Negative) Urine Bilirubin Negative (Negative) Urine Urobilinogen Negative (Negative) Ur Leukocyte Esterase Negative (Negative) Medications Administered Current Inpatient Medications Acetaminophen (Acetaminophen 325 Mg Tab) 650 mg PO Q4H PRN PRN Reason: Pain or Fever Stop: 06/08/20 03:27 Albuterol (Albuterol Hfa 8 Gm Inhaler) 2 puffs INH Q4H PRN PRN Reason: Shortness Of Breath Or Wheezing Stop: 06/08/20 03:27 Cetirizine HCl (Cetirizine Hcl 10 Mg Tablet) 10 mg PO QAM SHANIA Stop: 06/08/20 08:59 Last Admin: 05/12/20 07:44 Dose: 10 mg Documented by: Dexamethasone (Dexamethasone 1 Mg Tab) 6 mg PO DAILY SHANIA Stop: 06/08/20 20:59 Last Admin: 05/12/20 07:43 Dose: 6 mg Documented by: Enoxaparin Sodium (Enoxaparin Inj 40 Mg/0.4 Ml Syr) 40 mg SQ Q24H SHANIA Stop: 06/08/20 08:59 Last Admin: 05/12/20 07:43 Dose: 40 mg Documented by: Guaifenesin (Guaifenesin Sugar Free 200 Mg/10 Ml Udc) 200 mg PO Q6H PRN PRN Reason: Cough Stop: 06/09/20 13:59 Remdesivir 100 mg/ Sodium (Chloride) 250 mls @ 250 mls/hr IV Q24H [facility]; Protocol Stop: 05/13/20 06:59 Last Infusion: 05/12/20 07:42 Dose: Infused Documented by: Ceftriaxone Sodium 1,000 mg/ (Dextrose) 60 mls @ 100 mls/hr IV Q24H [facility]ANIA; Protocol Stop: 05/17/20 19:59 Last Infusion: 05/11/20 21:28 Dose: Infused Documented by: Meclizine HCl (Meclizine Hcl 25 Mg Tab) 25 mg PO TID PRN PRN Reason: dizziness Stop: 06/08/20 03:50 Ondansetron HCl (Ondansetron Inj 2 Mg/Ml 2 Ml Vial) 4 mg IV Q6H PRN PRN Reason: Nausea Stop: 06/08/20 03:27 Pantoprazole Sodium (Pantoprazole 40 Mg Tab) 40 mg PO [facility] Stop: 06/08/20 08:59 Last Admin: 05/12/20 07:44 Dose: 40 mg Documented by: Pravastatin Sodium (Pravastatin Sod 40 Mg Tab) 40 mg PO [facility] Stop: 06/08/20 20:59 Last Admin: 05/11/20 20:41 Dose: 40 mg Documented by: Sodium Chloride (Nss 30ml Flush, Days 1-5) 30 ml IV Q24H [facility] Stop: 05/13/20 06:01 Last Admin: 05/12/20 07:42 Dose: 30 ml Documented by: Tamoxifen Citrate (Tamoxifen Citrate 10 Mg Tablet) 20 mg PO [facility] Stop: 06/08/20 20:59 Last Admin: 05/11/20 20:54 Dose: 20 mg Documented by: Venlafaxine HCl (Venlafaxine Hcl Xr 75 Mg Capxr) 75 mg PO [facility] Stop: 06/08/20 08:59 Last Admin: 05/12/20 07:43 Dose: 75 mg Documented by:
[2020-05-12] MEDS: cefTRIAXone SODIUM 1,000 MG in DEXTROSE 5% 50 ML IV SCH (20:36)
[2020-05-12] MEDS: PRAVASTATIN SOD 40 MG TAB PO SCH (20:37)
[2020-05-12] MEDS: TAMOXIFEN CITRATE 10 MG TABLET PO SCH (20:45)
[2020-05-13] MEDS: REMDESIVIR 100mg: Days 2-5 IV SCH (05:54)
[2020-05-13 06:12] LABS: Hematocrit (blood only) 39.6 % (37-47); Hemoglobin 13.7 g/dL (12.0-16.0); Mean Corpuscular Hemoglobin 33.5 pg (25-34); Mean Corpuscular Hgb Conc 34.6 g/dL (32-36); Mean Corpuscular Volume 96.8 fL (80-100); Mean Platelet Volume 10.8 fL (7.4-10.4); Platelet Count 221 K/uL (130-400); RDW Coefficient of Variation 11.8 % (11.5-14.5); RDW Standard Deviation 42.4 fL (36.4-46.3); Red Blood Count 4.09 M/uL (4.2-5.4); White Blood Count 9.21 K/uL (4.8-10.8)
[2020-05-13 06:51] LABS: Calcium 8.7 mg/dl (8.5-10.1); Creatinine Clr Calc Pharmacy 79.2 ml/min; Est GFR (African American) 104.6; Est GFR (Non-African American) 90.3; Magnesium 2.3 mg/dl (1.8-2.4); Potassium 4.3 mmol/L (3.5-5.1)
[2020-05-13] MEDS: NSS 30mL Flush, Days 1-5 IV SCH (06:54)
[2020-05-13] MEDS: PANTOprazole 40 MG TAB PO SCH (08:18)
[2020-05-13] MEDS: CETIRIZINE HCL 10 MG TABLET PO SCH (08:18)
[2020-05-13] MEDS: dexAMETHasone 1 MG TAB PO SCH (08:18)
[2020-05-13] MEDS: VENLAFAXINE HCL XR 75 MG CAPXR PO SCH (08:18)
[2020-05-13] MEDS: ENOXAPARIN INJ 40 MG/0.4 ML SYR SQ SCH (08:19)
--- NOTE | 2020-05-13 09:26 | Hospitalist Progress Note ---
Date of Service May 13, 2020 Assessment & Plan (1) Pneumonia due to COVID-19 virus: Currently on room air satting 94% Checked O2 satts with ambulation Weaned off oxygen Continued dexamethasone and remdesivir while inpt, finished remdesivir course Guaifenesin prn cough Ceftriaxone while inpt, will provide PO cefdinir as outpt Monitored LFTs and renal function while inpt CT PE was negative for PE, showed small ground glass opacities Continued lovenox for DVT ppx while inpt Follow up with PCP after DC (2) History of breast cancer: s/p mastectomy bilateral On tamoxifen (3) Depression: Stable On venlafaxine (4) GERD (gastroesophageal reflux disease): Stable Continue PPI Admission and Anticipated Discharge Date Admission Date: May 09, 2020 Subjective Sitting up in bed in NAD. Satting 94% on room air. No acute events overnight. Shortness of breath and cough improved but continues to cough. No fever, chills. Review of Systems Review of Systems: All systems reviewed & are unremarkable except as noted in HPI & below Constitutional: no fever and no chills Respiratory: + cough; no dyspnea (improved) Cardiovascular: no chest pain, no palpitations and no edema Gastrointestinal: no abdominal pain, no nausea and no vomiting Physical Exam Physical Exam: Constitutional: slender elderly female sitting up in bed in NAD Eyes: PERRL, EOMI, conjunctivae normal, anicteric sclerae ENMT: external ear and nose normal, oropharynx normal Respiratory: normal respiratory effort, lungs clear to auscultation Cardiovascular: RRR, no murmur, no edema Gastrointestinal (Abdomen): normal bowel sounds, soft, nontender Musculoskeletal: no cyanosis or clubbing, extremities motor strength 5/5 Neurologic: PERRL, EOMI, no face palsy, no dysarthria, moves extremities spontaneously Psychiatric: A+Ox3, euthymic affect Results & Data Results & Data ([facility]) Vital Signs (Past 12 Hours) Vital Signs Temp Pulse Pulse Resp BP Pulse Ox 05/13/20 08:16 36.7 C 68 16 119/68 94 05/13/20 07:21 53 L 05/13/20 00:16 74 05/12/20 21:53 37.3 C 66 125/73 93 Laboratory Results 05/13/20 05/13/20 Range/Units 05:23 05:23 WBC 9.21 (4.8-10.8) K/uL RBC 4.09 L (4.2-5.4) M/uL Hgb 13.7 (12.0-16.0) g/dL Hct 39.6 (37-47) % MCV 96.8 (80-100) fL MCH 33.5 (25-34) pg MCHC 34.6 (32-36) g/dL RDW Std Deviation 42.4 (36.4-46.3) fL RDW Coeff of Suzanne 11.8 (11.5-14.5) % Plt Count 221 (130-400) K/uL MPV 10.8 H (7.4-10.4) fL Sodium 139 (136-145) mmol/L Potassium 4.3 (3.5-5.1) mmol/L Chloride 105 (98-107) mmol/L Carbon Dioxide 31 (21-32) mmol/L Anion Gap 3.0 (3-11) BUN 17 (7-18) mg/dl Creatinine 0.70 (0.6-1.2) mg/dl Est Cr Clr Drug Dosing 79.2 ml/min Est GFR ( Amer) 104.6 Est GFR (Non-Af Amer) 90.3 BUN/Creatinine Ratio 24.0 H (10-20) Glucose 144 H (70-99) mg/dl Calcium 8.7 (8.5-10.1) mg/dl Magnesium 2.3 (1.8-2.4) mg/dl Medications Administered Current Inpatient Medications Acetaminophen (Acetaminophen 325 Mg Tab) 650 mg PO Q4H PRN PRN Reason: Pain or Fever Stop: 06/08/20 03:27 Albuterol (Albuterol Hfa 8 Gm Inhaler) 2 puffs INH Q4H PRN PRN Reason: Shortness Of Breath Or Wheezing Stop: 06/08/20 03:27 Cetirizine HCl (Cetirizine Hcl 10 Mg Tablet) 10 mg PO QAM [facility] Stop: 06/08/20 08:59 Last Admin: 05/13/20 08:18 Dose: 10 mg Documented by: Dexamethasone (Dexamethasone 1 Mg Tab) 6 mg PO DAILY SHANIA Stop: 06/08/20 20:59 Last Admin: 05/13/20 08:18 Dose: 6 mg Documented by: Enoxaparin Sodium (Enoxaparin Inj 40 Mg/0.4 Ml Syr) 40 mg SQ Q24H SHANIA Stop: 06/08/20 08:59 Last Admin: 05/13/20 08:19 Dose: Not Given Documented by: Guaifenesin (Guaifenesin Sugar Free 200 Mg/10 Ml Udc) 200 mg PO Q6H PRN PRN Reason: Cough Stop: 06/09/20 13:59 Last Admin: 05/12/20 12:07 Dose: 200 mg Documented by: Ceftriaxone Sodium 1,000 mg/ (Dextrose) 60 mls @ 100 mls/hr IV Q24H SHANIA; Protocol Stop: 05/17/20 19:59 Last Infusion: 05/12/20 22:09 Dose: Infused Documented by: Meclizine HCl (Meclizine Hcl 25 Mg Tab) 25 mg PO TID PRN PRN Reason: dizziness Stop: 06/08/20 03:50 Ondansetron HCl (Ondansetron Inj 2 Mg/Ml 2 Ml Vial) 4 mg IV Q6H PRN PRN Reason: Nausea Stop: 06/08/20 03:27 Pantoprazole Sodium (Pantoprazole 40 Mg Tab) 40 mg PO [facility] Stop: 06/08/20 08:59 Last Admin: 05/13/20 08:18 Dose: 40 mg Documented by: Pravastatin Sodium (Pravastatin Sod 40 Mg Tab) 40 mg PO [facility] Stop: 06/08/20 20:59 Last Admin: 05/12/20 20:37 Dose: 40 mg Documented by: Tamoxifen Citrate (Tamoxifen Citrate 10 Mg Tablet) 20 mg PO [facility] Stop: 06/08/20 20:59 Last Admin: 05/12/20 20:45 Dose: 20 mg Documented by: Venlafaxine HCl (Venlafaxine Hcl Xr 75 Mg Capxr) [facility] [place]: 06/08/20 08:59 Last Admin: 05/13/20 08:18 Dose: 75 mg Documented by:
--- NOTE | 2020-05-13 11:36 | Discharge Summary ---
Date of Service May 13, 2020 Admission HPI Per Admitting Provider This is a 65-year-old female with past medical history significant for hyperlipidemia, allergic rhinitis, chronic rhinitis, GERD, history of psoriasis, psoriatic arthropathy, history of sensorineural hearing loss, bilateral fibromyalgia, generalized osteoarthritis, history of malignant neoplasm of the female breast, depression, history of tobacco abuse, who lives with her daughter and and grand kid comes because of shortness of breath on exertion and not feeling well,and dizziness. The patient was diagnosed on 04/30/2020 with COVID positive. They think the whole family got infected mostly from her granddaughter who goes to the high school. She was having fever of 102F and today she was feeling dizzy and shortness of breath on exertion which prompted her to come to the ER. In the ER when she came in, she was tachycardic and she was 90% on room air and on ambulation her oxygen saturation dropped to 89%. She was placed on 2 liters. Currently resting comfortably and saturating fine and hemodynamically stable. WBC 3.3, d-dimer was 1350. Lactate 1.9. Procalcitonin less than 0.05. D-dimer was elevated, so CTA of the chest was done which shows no PE, but shows patchy bilateral ground-glass and mildly consolidative opacities mainly in the subpleural location concerning for pneumonia, suspicious for COVID-19 pneumonia. The patient has some headache, some dizziness. Denies any blurred vision, no earache. No runny nose, but had some sore throat that got resolved. She lost sense of smell or taste. Appetite is okay, but because of loss of taste she could not eat much. Denies any chest pain. Has cough, bringing up some whitish yellow phlegm. No nausea, no vomiting, no abdominal pain, no diarrhea, no constipation, no blood in the stool or black stools. Normal bladder movements. No swelling in the legs, no rash. Admission Exam Per Admitting Provider GENERAL: The patient is of moderate build, not in acute distress. VITAL SIGNS: Temperature 37.4, pulse 70, respiratory rate 16, blood pressure 100/60, oxygen when she came in was 90% on room air, currently 96% on 2 liters. HEENT: Pupils equal, round, reactive to light. Oral mucosa moist. NECK: No JVD, no neck masses seen. CARDIOVASCULAR: S1, S2 heard, regular rate and rhythm, no murmur, no gallop. RESPIRATORY SYSTEM: Normal AP diameter. No accessory muscle use. No wheezing, no crackles. ABDOMEN: Soft, bowel sounds present, nontender. No distention. CENTRAL NERVOUS SYSTEM: Cranial nerves II through XII grossly intact, nonfocal. EXTREMITIES: No edema, no erythema. Principal Diagnosis Hypoxia due to pneumonia, due to COVID-19 virus Discharge Exam Constitutional: slender elderly female sitting up in bed in NAD Eyes: PERRL, EOMI, conjunctivae normal, anicteric sclerae ENMT: external ear and nose normal, oropharynx normal Respiratory: normal respiratory effort, lungs clear to auscultation Cardiovascular: RRR, no murmur, no edema Gastrointestinal (Abdomen): normal bowel sounds, soft, nontender Musculoskeletal: no cyanosis or clubbing, extremities motor strength 5/5 Neurologic: PERRL, EOMI, no face palsy, no dysarthria, moves extremities spontaneously Psychiatric: A+Ox3, euthymic affect Discharge Data Allergies Allergy/AdvReac Type Severity Reaction Status Date / Time doxycycline Allergy Unknown Hives Verified 05/08/20 23:30 sulfamethoxazole Allergy Unknown insomnia Verified 05/08/20 23:30 trimethoprim Allergy Unknown insomnia Verified 05/08/20 23:30 clarithromycin AdvReac Intermediate INSOMNIA Verified 05/08/20 23:30 TACHYCARDIA codeine AdvReac Mild Severe Verified 05/08/20 23:30 drowsiness Tetracyclines AdvReac Mild Nausea Verified 05/08/20 23:30 Consultations 05/09/20 00:23 ED Decision to Admit Stat 05/09/20 03:28 Consult Case Management - Discharge Planning Routine Ordered Studies 05/08/20 23:12 CT angio chest PE protocol Urgent IMPRESSION: 1. No evidence for pulmonary embolus. 2. A few scattered small peripheral groundglass airspace opacities consistent with an atypical pneumonia likely secondary to the patient's known coronavirus. 3. Hepatic steatosis. Hospital Course (1) Pneumonia due to COVID-19 virus: Currently on room air satting 94% Checked O2 satts with ambulation Weaned off oxygen Continued dexamethasone and remdesivir while inpt, finished remdesivir course Guaifenesin prn cough Ceftriaxone while inpt, will provide PO cefdinir as outpt Monitored LFTs and renal function while inpt CT PE was negative for PE, showed small ground glass opacities Continued lovenox for DVT ppx while inpt Follow up with PCP after DC (2) History of breast cancer: s/p mastectomy bilateral On tamoxifen (3) Depression: Stable On venlafaxine (4) GERD (gastroesophageal reflux disease): Stable Continue PPI Total Time Total Time Spent Total Time Spent (In Minutes): 40 Total Time Includes: Examination of the Patient, Discharge Planning and Medication Reconciliation Discharge Plan Discharge Items Patient Disposition: Home - Self-Care Reason For Visit: SOB Discharge Diagnosis: Hypoxia due to pneumonia, due to COVID-19 virus Activity: Per Instructions section Non-emergency contact: Primary Care Provider Call non-emergency contact if: you have any medication questions and your symptoms worsen Follow-up/Referrals: Ghassan Ferrara MD [Primary Care Provider] - (Date & Time 05/17/2020 10:00 AM Provider Ghassan Ferrara MD [facility] PLEASE NOTE: THIS IS A TELEVIDEO APPOINTMENT. PLEASE FOLLOW THE DIRECTION IN THE EMAIL SENT TO YOU ADDRESS ON FILE. IF YOU HAVE ANY QUESTIONS OR WOULD LIKE TO CHANGE TO A TELEPHONE ONLY APPOINTMENT, CALL .) Diet: Heart Healthy Addtl Attending Provider Instructions: Follow up with your primary care doctor, on 05/17/2020. Take antibiotics as prescribed, you can also use albuterol inhaler for shortness of breath. Please see instructions below for further information regarding COVID -19 infection. Addtl Self Pay Representative Provider Instructions: Coronavirus disease 2019 (COVID-19) is a virus that causes a respiratory illness. It is caused by a coronavirus called 2019 novel coronavirus (2019- nCoV). There are many types of coronavirus. Coronaviruses are a very common cause of bronchitis. They may sometimes cause lung infection(pneumonia). Symptoms can range from mild to severe respiratory illness. These viruses are also foundin some animals. COVID-19 was first found in people in [facility], in late 2018. In 2020, several cases of COVID-19 have been confirmed in the [place] Public health officials are working to find the source. How the virus spreads is not yet fully known. It may be spread through droplets of fluid that a person coughs or sneezes into the air. It may be spread if you touch a surface with virus on it, such as a handle or object, and then touch your mouth. What are the symptoms of COVID-19? Some people have no symptoms or mild symptoms. Symptoms may appear 2 to 14 days after contact with the virus. Symptoms can include: Fever Coughing Trouble breathing What are possible complications from COVID-19? In many cases, this virus can cause infection (pneumonia) in both lungs. In some cases, this can cause . How is COVID-19 diagnosed? Your healthcare provider will ask about your symptoms. He or she will also ask about your recent travel and contact with sick people. Testing for the virus is only done through the CDC. If yourhealthcare provider thinks you may have COVID- 19, he or she will work with your local health department and the CDC on testing. Follow all instructions from your healthcare provider. COVID-19 is diagnosed by: Nasal and throat swab. A cotton-tipped swab is wiped inside your nose or thr oat. This is done to check for viruses in your nasal mucus. Sputum culture. A small sample of mucus coughed from your lungs (sputum) is collected if you have a cough. It is checked for the virus. How is COVID-19 treated? There is currently no medicine to treat the virus. Treatment is done to help your body while it fights the virus. This is known as supportive care. Supportive care may include: Pain medicine. These include acetaminophen and ibuprofen. They are used to help ease pain and reduce fever. Bed rest. This helps your body fight the illness. For severe illness, you may need to stay in the hospital. Care during severe illness may include: IV (intravenous) fluids.These are given through a vein to help keep your body hydrated. Oxygen. Supplemental oxygen or ventilation with a breathing machine (ventilator) may be given. This is done to keep enough oxygen in your body. Are you at risk for COVID-19? If youve been to a place where people have been sick with this virus, you are at risk for infection. You are at risk if you: Recently traveled to an affected area Had contact with a sick person who recently traveled to this area Had contact with a person who was diagnosed with COVID-19 How can COVID-19 be prevented? There is no vaccine yet. The best prevention is to not have contact with the virus. The CDC advises that people should not travel to areas where there are COVID-19 outbreaks right now for any reason that is not urgent. To help prevent spreading the infection, wash your hands often, or use an alcohol-basedhand parakeet raiser. If you are in an area with COVID-19: Wash your hands often. Or use an alcohol-based hand parakeet raiser often. Only touch your eyes, nose, or mouth with clean hands. Dont have contact with people who are sick. Follow local instructions about being in public. For example, you may be told to not use public transport for a period of time. Stay away from markets that have live or animals. Wash your hands after touching any animals. Don't touch animals that may be sick. Dont share eating or drinking tools with sick people. Dont kiss someone who is sick. Clean surfaces often with disinfectant. If you were in an area with COVID-19 in the last 14 days: Call your healthcare provider. He or she can talk with local health staff to see what action may be needed. Follow all instructions from your provider. Take your temperature every morning and evening for at least 14 days. This is to check for fever. Keep a record of the readings. Keep watch for symptoms of the virus. Tell your provider right away if you have symptoms. If you were in an area with COVID-19 and have a fever or other symptoms: Dont panic. Keep in mind that other illnesses can cause similar symptoms. Stay away from work, school, and public places. Limit physical contact with family members. Don't kiss anyone or share eating or drinking utensils. Clean surfaces you touch with disinfectant. This is to help prevent the virus from spreading. Call your healthcare provider. Explain that you have been exposed to COVID-19 and have symptoms. Do this before going to any hospital. Wait for instructions. Keep in mind that healthcare staff may wear protective equipment such as masks, gowns, gloves, and eye protection. You may be put in a separate room. This is to prevent the possible virus from spreading. Tell the healthcare staff about recent travel. This includes local travel on public transport. Staff may need to find other people you have been in contact with. Follow all instructions the healthcare staff give you. If you have been diagnosed with COVID-19 Follow all instructions from your healthcare provider. Dont leave your home, except to get medical care. Call your healthcare providers office before going. They can prepare and give you instructions. This will help prevent the virus from spreading. Dont go to work, school, or public areas. Dont use public transport or taxis. Stay away from other people in your home. Have them wear face masks around you. Dont share household items or food. Wear a face mask if you can. This includes at home or in a medical facility. Cover your face with a tissue when you cough or sneeze. Throw the tissue away. Wash your hands. Wash your hands often. Caregivers should: Follow all instructions from healthcare staff. Wear a face mask and protective clothing as advised. Wash hands often. Keep track of the sick persons symptoms. Clean surfaces, fabrics, and laundry thoroughly. Keep other people away from the sick person. When to call your healthcare provider Call your healthcare provider: If youve recently traveled and have symptoms If you have been diagnosed with COVID-19 and your symptoms are worse To learn more To find out more about COVID-19, visit the CDC website at www.cdc.gov/coronavirus/2019-ncov/index.html. [employer]. [address] [place] [address]. All rights reserved. This information is not intended as a substitute for professional medical care. Always follow your healthcare professional's instructions. This information has been adapted from [employer] Home Isolation COVID-19 Instructions The following information about Home Isolation is from the CDC Website: https://www.cdc.gov/coronavirus/2019-ncov/hcp/yymgupln-fqboywg-juqhjo.html Stay home except to get medical care People who are mildly ill with COVID-19 are able to isolate at home during their illness. You should restrict activities outside your home, except for getting medical care. Do not go to work, school, or public areas. Avoid using public transportation, ride-sharing, or taxis. Separate yourself from other people and animals in your home People: As much as possible, you should stay in a specific room and away from other people in your home. Also, you should use a separate bathroom, if available. Animals: You should restrict contact with pets and other animals while you are sick with COVID-19, just like you would around other people. Although there have not been reports of pets or other animals becoming sick with COVID-19, it is still recommended that people sick with COVID-19 limit contact with animals until more information is known about the virus. When possible, have another member of your household care for your animals while you are sick. If you are sick with COVID-19, avoid contact with your pet, including petting, snuggling, being kissed or licked, and sharing food. If you must care for your pet or be around animals while you are sick, wash your hands before and after you interact with pets and wear a face mask. Call ahead before visiting your doctor If you have a medical appointment, call the healthcare provider and tell them that you have or may have COVID-19. This will help the healthcare providers office take steps to keep other people from getting infected or exposed. Wear a face mask You should wear a face mask when you are around other people (e.g., sharing a room or vehicle) or pets and before you enter a healthcare providers office. If you are not able to wear a face mask (for example, because it causes trouble breathing), then people who live with you should not stay in the same room with you, or they should wear a face mask if they enter your room. Cover your coughs and sneezes Cover your mouth and nose with a tissue when you cough or sneeze. Throw used tissues in a lined trash can. Immediately wash your hands with soap and water for at least 20 seconds or, if soap and water are not available, clean your hands with an alcohol-based hand parakeet raiser that contains at least 60% alcohol. Clean your hands often Wash your hands often with soap and water for at least 20 seconds, especially after blowing your nose, coughing, or sneezing; going to the bathroom; and before eating or preparing food. If soap and water are not readily available, use an alcohol-based hand parakeet raiser with at least 60% alcohol, covering all surfaces of your hands and rubbing them together until they feel dry. Soap and water are the best option if hands are visibly dirty. Avoid touching your eyes, nose, and mouth with unwashed hands. Avoid sharing personal household items You should not share dishes, drinking glasses, cups, eating utensils, towels, or bedding with other people or pets in your home. After using these items, they should be washed thoroughly with soap and water. Clean all high-touch surfaces everyday High touch surfaces include counters, tabletops, doorknobs, bathroom fixtures, toilets, phones, keyboards, tablets, and bedside tables. Also, clean any surfaces that may have blood, stool, or body fluids on them. Use a household cleaning spray or wipe, according to the label instructions. Labels contain instructions for safe and effective use of the cleaning product including precautions you should take when applying the product, such as wearing gloves and making sure you have good ventilation during use of the product. Monitor your symptoms Seek prompt medical attention if your illness is worsening (e.g., difficulty breathing).Beforeseeking care, call your healthcare provider and tell them that you have, or are being evaluated for, COVID-19. Put on a face mask before you enter the facility. These steps will help the healthcare providers office to keep other people in the office or waiting room from getting infected or exposed. Ask your healthcare provider to call the local or state health department. Persons who are placed under active monitoring or facilitated self- monitoring should follow instructions provided by their local health department or occupational health professionals, as appropriate. When working with your local health department check their available hours. If you have a medical emergency and need to call 911, notify the dispatch personnel that you have, or are being evaluated for COVID-19. If possible, put on a face mask before emergency medical services arrive. Discontinuing home isolation Patients with confirmed COVID-19 should remain under home isolation precautions until the risk of secondary transmission to others is thought to be low. The decision to discontinue home isolation precautions should be made on a pyzk-bh-room basis, in consultation with healthcare providers and state and local health departments. Pending Studies at Discharge: No Stand-Alone Forms: My ipvive, Smoking Cessation Medications and DC Order Prescriptions: New albuterol sulfate [Ventolin HFA] 90 mcg/actuation Hfa Aerosol Inhaler 2 puff inhalation Q4H PRN (Reason: shortness of breath or wheezing) Qty: 6.7 RF: 0 cefdinir 300 mg capsule 300 mg PO BID 5 Days Qty: 10 RF: 0 guaifenesin 100 mg/5 mL Liquid 200 mg PO Q6H PRN (Reason: cough) Qty: 473 RF: 0 Continued omeprazole 20 mg Tablet,Disintegrat, Delay Rel 20 mg PO QAM RF: 0 cetirizine [Zyrtec] 10 mg Tablet 10 mg PO QAM RF: 0 venlafaxine 75 mg capsule,extended release 24hr 75 mg PO QAM RF: 0 pravastatin 40 mg tablet 40 mg PO HS RF: 0 tamoxifen 20 mg tablet 20 mg PO HS RF: 0 meclizine 25 mg tablet 25 mg PO TID PRN (Reason: dizziness) Qty: 20 RF: 0 Otezla 30 mg Tablet 30 mg PO BID RF: 0 Discharge Orders: Discharge Order (Routine); Ordered 05/13/20 Ordered By: Rigoberto Horton Admission Data Admit Date/Time: 05/09/20 02:33 Attending Provider: Rigoberto Horton Admit Provider: Armin Moody Primary Care Provider: Ghassan Ferrara Other Providers: Armin Moody ; Berenice Alexis I. Other Interventions: Discharge Summary Assessment (RN) Last Done: 05/13/20 10:50
== END 2020-05-13 11:30 | disposition home or self-care (01) | DRG 177 ==
LOC: ED 21:39 → 1E 05-09 02:33 → SUATTDRO 05-09 02:33 → 1E 05-09 02:54 → 2N 05-09 15:28